=== PATIENT | female | born 1960 | race African-American/Black ===

== ENCOUNTER 2017-05-11 18:09 | Inpatient (IN) | payer MEDICAID, OTHER ==
[~2017-05-11] VITALS: Ht 157.5 cm; Wt 126.6 kg
[~2017-05-11 18:09] MED LIST: ADVAIR; ALBUTEROL INHALER; AMLO10TA4 PO; ASPI-1079 PO; ATOR10TA PO; FLUT1DIS3 IH; FURO-152 PO; KDUR20 PO; LASIX; LEVO500T2 PO; MONT10TA21 PO; OMEP20CA4 PO; P20 PO; PROAIR; THEO200T17 PO; TRAM50TA3 PO; ZPACK
[2017-05-11] MEDS ORDERED: IPRATROPIUM BROMIDE (0.02%) 0.5MG/2.5ML NEB HHN STA (18:28)
[2017-05-11] MEDS ORDERED: ALBUTEROL (0.083%) 2.5MG/3ML NEB HHN STA (18:28)
[2017-05-11] MEDS ORDERED: METHYLPREDNISOLONE SOD SUCC 125 MG/2 ML VIAL IV STA (18:28)
[2017-05-11] MEDS ORDERED: CLOPIDOGREL 75MG TABLET PO ONE (18:30)
[2017-05-11] MEDS ORDERED: MAGNESIUM 2 G PREMIX 50 ML IV ONE (18:30)
[2017-05-11] MEDS ORDERED: NITROGLYCERIN OINT 1GM/INCH UDPKT TD ONE (18:30)
[2017-05-11] MEDS ORDERED: AZITHROMYCIN 500 MG in DEXT 5% WATER 250 ML IV ONE (18:30)
[2017-05-11] MEDS ORDERED: CEFTRIAXONE 1 G PREMIX 50 ML IV ONE (18:30)
[2017-05-11] MEDS ORDERED: AZITHROMYCIN 500 MG in SODIUM CHLORIDE 0.9% 250 ML IV ONE (18:53)
[2017-05-11 19:18] LABS: BASOPHILS % 0.8 % (0.0-2.0); HEMOGLOBIN. 12.1 g/dL (12.0-16.0); LYMPHOCYTES % 30.9 % (20.0-50.0); MEAN CORPUSCULAR HEMOGLOBIN 27.5 pg (28.0-32.0); MEAN CORPUSCULAR VOLUME 83.8 fL (81.0-99.0); MEAN PLATELET VOLUME 7.8 fl (7.4-10.4); MONOCYTES % 7.2 % (2.0-8.0); NEUTROPHILS % 60.1 % (40.0-76.0); PLATELET 334 x1000/uL (130-400); RED BLOOD CELL COUNT 4.41 mill/uL (4.2-5.4); RED CELL DISTRIBUTION WIDTH 16.1 % (11.6-14.6)
[2017-05-11 19:22] LABS: INR 1.1; PROTHROMBIN TIME 11.1 sec (9.4-11.6)
[2017-05-11 19:33] LABS: CHLORIDE 102 mEq/L (98-107); ETHANOL BLOOD < 10 mg/dL
[2017-05-11 20:17] LABS: BG BASE EXCESS 0.2 mmol/L (-2.0-2.0); BG CARBOXYHEMOGLOBIN 0.3 % (0.5-1.5); BG DEOXYHEMOGLOBIN 3.2 % (0.0-5.0); BG FRACTION INSPIRED OXYGEN 28; BG HCO3 ACT 24.5 mmol/L (22.0-26.0); BG METHEMOGLOBIN 0.3 % (0.0-1.5); BG OXYGEN SATURATION 96.8 % (92.0-98.5); BG OXYHEMOGLOBIN 96.2 % (94.0-97.0); BG PCO2 38.4 mmHg (35.0-45.0); BG PH 7.422 (7.350-7.450); BG PO2 89.4 mmHg (75.0-100.0); BG SAMPLE SITE RIGHT RADIAL; BG TOTAL HEMOGLOBIN 12.3 g/dL (12.0-18.0); BG VENT MODE NASAL CANNULA
[2017-05-12] VITALS (7 sets, daily range): BP systolic 103–149; BP diastolic 61–91
[2017-05-12] MEDS ORDERED: ALBU05 NEB (01:01)
[2017-05-12] MEDS ORDERED: FLUT16SP15 BOTHNSTRLS (01:01)
[2017-05-12] MEDS ORDERED: LOVA20TA2 PO (01:01)
[2017-05-12] MEDS ORDERED: TIOT18CA3 INH (01:01)
[2017-05-12] MEDS ORDERED: IBUP-2030 PO (01:01)
[2017-05-12] MEDS ORDERED: PROT40 PO (01:01)
[2017-05-12] MEDS ORDERED: RANI300T4 PO (01:01)
[2017-05-12] MEDS ORDERED: FURO-151 PO (01:01)
[2017-05-12] MEDS ORDERED: ATROV IH (01:02)
[2017-05-12] MEDS: AZITHROMYCIN 500 MG in SODIUM CHLORIDE 0.9% 250 ML IV SCH (04:27)
[2017-05-12] MEDS: IPRATROPIUM/ALBUTEROL 0.5-3(2.5)MG/3ML NEB HHN SCH ×5 (04:40→21:23)
[2017-05-12] MEDS ORDERED: IPRATROPIUM/ALBUTEROL 0.5-3(2.5)MG/3ML NEB HHN SCH (06:00)
[2017-05-12] MEDS: METHYLPREDNISOLONE SOD SUCC 40 MG/ML VIAL IV SCH ×2 (06:32→14:34)
[2017-05-12] MEDS: PANTOPRAZOLE 40MG DR TABLET PO SCH (06:32)
[2017-05-12 06:40] LABS: HEMOGLOBIN. 11.6 g/dL (12.0-16.0); MEAN CORPUSCULAR HEMOGLOBIN 27.8 pg (28.0-32.0); MEAN PLATELET VOLUME 8.2 fl (7.4-10.4); PLATELET 320 x1000/uL (130-400); RED BLOOD CELL COUNT 4.16 mill/uL (4.2-5.4)
[2017-05-12 07:25] LABS: CHLORIDE 104 mEq/L (98-107)
[2017-05-12] MEDS: BUDESONIDE 0.5MG/2ML NEB HHN SCH (08:28)
[2017-05-12] MEDS: FLUTICASONE PROPIONATE 50MCG/SPRAY BOTTLE BOTHNSTRLS SCH (08:53)
[2017-05-12] MEDS: POTASSIUM CHLORIDE 20MEQ TABLET SR PO SCH (08:54)
[2017-05-12] MEDS: FUROSEMIDE 40MG TABLET PO SCH (08:54)
[2017-05-12] MEDS: AMLODIPINE 10MG TABLET PO SCH (08:54)
[2017-05-12] MEDS ORDERED: MEDICATION NOT ON FORMULARY EA (Lovastatin 1 TAB) PO SCH (09:00)
[2017-05-12] MEDS ORDERED: MEDICATION NOT ON FORMULARY EA (Fluticasone/Salmeterol (Advair 250-50 Diskus) 1 PUFF) IH SCH (09:00)
[2017-05-12] MEDS ORDERED: MEDICATION NOT ON FORMULARY EA (Tiotropium Bromide (Spiriva) 1 CAP) INH SCH (09:00)
[2017-05-12] MEDS ORDERED: INFLUENZA VIRUS VACCINE(AFLURIA) 0.5ML SYR IM ONE (12:00)
[2017-05-12] MEDS ORDERED: IOHEXOL-300 100 ML BOTTLE ONE (16:24)
[2017-05-12] MEDS ORDERED: MEDICATION NOT ON FORMULARY EA (Ranitidine Hcl 1 TAB) PO SCH (17:00)
[2017-05-12] MEDS: FAMOTIDINE 20MG TABLET PO SCH (17:07)
[2017-05-12] MEDS ORDERED: DEXTROSE 50% WATER 50ML SYRINGE IV PRN (17:45)
[2017-05-12] MEDS: BLOOD SUGAR DIAGNOSTIC STRIP TEST SCH ×2 (17:50→20:40)
[2017-05-12] MEDS: DEXAMETHASONE 4MG/ML 1ML VIAL IV SCH (19:29)
[2017-05-12] MEDS: INSULIN LISPRO 100 UNITS/ML SUBCUT SCH ×2 (19:36→20:59)
[2017-05-12] MEDS: CEFTRIAXONE 1 G PREMIX 50 ML IV SCH (19:44)
[2017-05-12 19:57] LABS: PLATELET ESTIMATE NORMAL
[2017-05-12] MEDS ORDERED: VANCOMYCIN 1500MG in DEXTROSE 5% WATER 250ML IV SCH (20:00)
[2017-05-12] MEDS: MONTELUKAST SODIUM 10MG TABLET PO SCH (20:27)
[2017-05-12] MEDS: ATORVASTATIN CALCIUM 10MG TABLET PO SCH (20:27)
[2017-05-12] MEDS: METRONIDAZOLE 500 MG PREMIX 100 ML IV SCH ×2 (22:00→22:59)
[2017-05-13] VITALS: BP 133/81
[2017-05-13] MEDS: DEXAMETHASONE 4MG/ML 1ML VIAL IV SCH ×4 (00:14→17:42)
[2017-05-13] MEDS: IPRATROPIUM/ALBUTEROL 0.5-3(2.5)MG/3ML NEB HHN SCH ×6 (00:38→20:03)
[2017-05-13] MEDS: BUDESONIDE 0.5MG/2ML NEB HHN SCH ×3 (03:56→20:03)
[2017-05-13 04:00] VITALS: BP 129/76
[2017-05-13] MEDS: AZITHROMYCIN 500 MG in SODIUM CHLORIDE 0.9% 250 ML IV SCH (04:20)
[2017-05-13] MEDS: METRONIDAZOLE 500 MG PREMIX 100 ML IV SCH ×3 (06:12→22:58)
[2017-05-13] MEDS: BLOOD SUGAR DIAGNOSTIC STRIP TEST SCH ×4 (06:20→21:14)
[2017-05-13] MEDS: PANTOPRAZOLE 40MG DR TABLET PO SCH (06:21)
[2017-05-13 06:59] LABS: HEMATOCRIT. 35.7 % (36.0-48.0); HEMOGLOBIN. 11.4 g/dL (12.0-16.0); MEAN CORPUSCULAR HEMOGLOBIN 26.9 pg (28.0-32.0); MEAN CORPUSCULAR VOLUME 84.2 fL (81.0-99.0); MEAN PLATELET VOLUME 7.9 fl (7.4-10.4); PLATELET 319 x1000/uL (130-400); RED BLOOD CELL COUNT 4.24 mill/uL (4.2-5.4); RED CELL DISTRIBUTION WIDTH 16.1 % (11.6-14.6)
[2017-05-13 07:22] LABS: CHLORIDE 104 mEq/L (98-107)
[2017-05-13] MEDS: INSULIN LISPRO 100 UNITS/ML SUBCUT SCH ×4 (07:50→21:25)
[2017-05-13 08:00] VITALS: BP 131/82
[2017-05-13] MEDS ORDERED: LIDOCAINE HCL/PF 1% 10 MG/ML 5ML VIAL ONE (08:04)
[2017-05-13] MEDS: FUROSEMIDE 40MG TABLET PO SCH (08:36)
[2017-05-13] MEDS: POTASSIUM CHLORIDE 20MEQ TABLET SR PO SCH (08:36)
[2017-05-13] MEDS: FLUTICASONE PROPIONATE 50MCG/SPRAY BOTTLE BOTHNSTRLS SCH (08:36)
[2017-05-13] MEDS: VANCOMYCIN 1 G PREMIX 200 ML IV SCH ×2 (08:36→21:28)
[2017-05-13] MEDS: AMLODIPINE 10MG TABLET PO SCH (08:36)
[2017-05-13] MEDS: ENOXAPARIN 40MG/0.4ML SYR SUBCUT SCH ×2 (11:51→21:14)
[2017-05-13 12:00] VITALS: BP 106/74
[2017-05-13 13:42] LABS: PLATELET ESTIMATE NORMAL
[2017-05-13 16:00] VITALS: BP 123/65
[2017-05-13] MEDS: FAMOTIDINE 20MG TABLET PO SCH (17:42)
[2017-05-13 20:00] VITALS: BP 119/75
[2017-05-13] MEDS: MONTELUKAST SODIUM 10MG TABLET PO SCH (21:08)
[2017-05-13] MEDS: ATORVASTATIN CALCIUM 10MG TABLET PO SCH (21:08)
[2017-05-13] MEDS: CEFTRIAXONE 1 G PREMIX 50 ML IV SCH (21:08)
[2017-05-13] MEDS ORDERED: DIPHENHYDRAMINE 25MG CAPSULE PO PRN (23:45)
[2017-05-14] VITALS: BP 127/76
[2017-05-14] MEDS: DEXAMETHASONE 4MG/ML 1ML VIAL IV SCH ×5 (00:15→23:25)
[2017-05-14] MEDS: IPRATROPIUM/ALBUTEROL 0.5-3(2.5)MG/3ML NEB HHN SCH ×6 (00:42→20:28)
[2017-05-14 04:00] VITALS: BP 110/68
[2017-05-14] MEDS: AZITHROMYCIN 500 MG in SODIUM CHLORIDE 0.9% 250 ML IV SCH (04:22)
[2017-05-14] MEDS: METRONIDAZOLE 500 MG PREMIX 100 ML IV SCH ×3 (05:54→23:02)
[2017-05-14] MEDS: ACETAMINOPHEN 325MG TABLET PO PRN ×2 (06:35→19:41)
[2017-05-14] MEDS: BLOOD SUGAR DIAGNOSTIC STRIP TEST SCH ×4 (07:21→20:53)
[2017-05-14] MEDS: INSULIN LISPRO 100 UNITS/ML SUBCUT SCH ×4 (07:22→21:40)
[2017-05-14 08:00] VITALS: BP 130/78
[2017-05-14] MEDS: FLUTICASONE PROPIONATE 50MCG/SPRAY BOTTLE BOTHNSTRLS SCH (09:29)
[2017-05-14] MEDS: FUROSEMIDE 40MG TABLET PO SCH (09:30)
[2017-05-14] MEDS: PANTOPRAZOLE 40MG DR TABLET PO SCH (09:30)
[2017-05-14] MEDS: POTASSIUM CHLORIDE 20MEQ TABLET SR PO SCH (09:30)
[2017-05-14] MEDS: ENOXAPARIN 40MG/0.4ML SYR SUBCUT SCH ×2 (09:31→20:43)
[2017-05-14] MEDS: AMLODIPINE 10MG TABLET PO SCH (09:31)
[2017-05-14] MEDS: VANCOMYCIN 1 G PREMIX 200 ML IV SCH (09:32)
[2017-05-14] MEDS: IBUPROFEN 800MG TABLET PO PRN ×3 (09:44→22:05)
[2017-05-14] MEDS: BUDESONIDE 0.5MG/2ML NEB HHN SCH ×2 (10:32→20:28)
[2017-05-14 11:45] VITALS: BP 134/79
[2017-05-14 15:14] LABS: CHLORIDE 101 mEq/L (98-107)
[2017-05-14 16:00] VITALS: BP 141/64
[2017-05-14] MEDS: FAMOTIDINE 20MG TABLET PO SCH (17:15)
[2017-05-14] MEDS: CEFTRIAXONE 1 G PREMIX 50 ML IV SCH (19:41)
[2017-05-14 20:00] VITALS: BP 144/86
[2017-05-14] MEDS: MONTELUKAST SODIUM 10MG TABLET PO SCH (20:41)
[2017-05-14] MEDS: ATORVASTATIN CALCIUM 10MG TABLET PO SCH (20:41)
[2017-05-14] MEDS: VANCOMYCIN 750 MG PREMIX 150 ML IV SCH (21:36)
[2017-05-15] VITALS: BP 144/82
[2017-05-15] MEDS: IPRATROPIUM/ALBUTEROL 0.5-3(2.5)MG/3ML NEB HHN SCH ×6 (00:32→21:03)
[2017-05-15 04:00] VITALS: BP 152/92
[2017-05-15] MEDS: AZITHROMYCIN 500 MG in SODIUM CHLORIDE 0.9% 250 ML IV SCH (04:02)
[2017-05-15] MEDS: DEXAMETHASONE 4MG/ML 1ML VIAL IV SCH ×3 (06:01→17:16)
[2017-05-15] MEDS: METRONIDAZOLE 500 MG PREMIX 100 ML IV SCH ×3 (06:02→22:29)
[2017-05-15] MEDS: BLOOD SUGAR DIAGNOSTIC STRIP TEST SCH ×4 (06:28→20:24)
[2017-05-15] MEDS: INSULIN LISPRO 100 UNITS/ML SUBCUT SCH ×4 (06:55→20:24)
[2017-05-15 08:00] VITALS: BP 131/82
[2017-05-15] MEDS: BUDESONIDE 0.5MG/2ML NEB HHN SCH (08:40)
[2017-05-15] MEDS: FUROSEMIDE 40MG TABLET PO SCH (08:55)
[2017-05-15] MEDS: POTASSIUM CHLORIDE 20MEQ TABLET SR PO SCH (08:55)
[2017-05-15] MEDS: AMLODIPINE 10MG TABLET PO SCH (08:55)
[2017-05-15] MEDS: ENOXAPARIN 40MG/0.4ML SYR SUBCUT SCH ×2 (08:56→20:06)
[2017-05-15] MEDS: VANCOMYCIN 750 MG PREMIX 150 ML IV SCH ×2 (09:04→20:56)
[2017-05-15] MEDS: PANTOPRAZOLE SODIUM 40 MG/VIAL IV SCH (09:04)
[2017-05-15 12:00] VITALS: BP_SYST 126; BP_SYST 127; BP_DIAS 76; BP_DIAS 80
[2017-05-15 12:51] LABS: BASOPHILS % 0.1 % (0.0-2.0); HEMATOCRIT. 35.6 % (36.0-48.0); HEMOGLOBIN. 11.4 g/dL (12.0-16.0); MEAN CORPUSCULAR HEMOGLOBIN 26.6 pg (28.0-32.0); MEAN CORPUSCULAR VOLUME 83.4 fL (81.0-99.0); MEAN PLATELET VOLUME 7.9 fl (7.4-10.4); NEUTROPHILS % 86.9 % (40.0-76.0); PLATELET 299 x1000/uL (130-400); RED BLOOD CELL COUNT 4.27 mill/uL (4.2-5.4); RED CELL DISTRIBUTION WIDTH 16.5 % (11.6-14.6)
[2017-05-15 16:00] VITALS: BP 126/76
[2017-05-15] MEDS: FAMOTIDINE 20MG TABLET PO SCH (16:43)
[2017-05-15] MEDS ORDERED: SIMETHICONE 40 MG/0.6 ML 30ML ONE (17:20)
[2017-05-15] MEDS ORDERED: FENTANYL CITRATE/PF 50MCG/ML 2ML VIAL ONE (17:20)
[2017-05-15] MEDS ORDERED: MIDAZOLAM HCL 5 MG/5 ML VIAL ONE (17:21)
[2017-05-15 20:00] VITALS: BP 145/93
[2017-05-15] MEDS: CEFTRIAXONE 1 G PREMIX 50 ML IV SCH (20:05)
[2017-05-15] MEDS: MONTELUKAST SODIUM 10MG TABLET PO SCH (20:05)
[2017-05-15] MEDS: ATORVASTATIN CALCIUM 10MG TABLET PO SCH (20:05)
[2017-05-15] MEDS: IBUPROFEN 800MG TABLET PO PRN (20:21)
[2017-05-16] VITALS: BP 133/70
[2017-05-16] MEDS: DEXAMETHASONE 4MG/ML 1ML VIAL IV SCH ×4 (01:09→18:29)
[2017-05-16] MEDS: IPRATROPIUM/ALBUTEROL 0.5-3(2.5)MG/3ML NEB HHN SCH ×6 (01:25→21:07)
[2017-05-16 04:00] VITALS: BP 131/76
[2017-05-16] MEDS: AZITHROMYCIN 500 MG in SODIUM CHLORIDE 0.9% 250 ML IV SCH (04:05)
[2017-05-16] MEDS: METRONIDAZOLE 500 MG PREMIX 100 ML IV SCH ×2 (06:22→14:00)
[2017-05-16] MEDS: BLOOD SUGAR DIAGNOSTIC STRIP TEST SCH ×4 (06:31→21:00)
[2017-05-16] MEDS: INSULIN LISPRO 100 UNITS/ML SUBCUT SCH ×3 (06:52→17:50)
[2017-05-16 08:19] VITALS: BP 154/95
[2017-05-16] MEDS ORDERED: BARIUM SULFATE 176 GM SUSP.RECON ONE (08:39)
[2017-05-16 08:52] LABS: HEMATOCRIT. 37.3 % (36.0-48.0); HEMOGLOBIN. 11.8 g/dL (12.0-16.0); MEAN CORPUSCULAR HEMOGLOBIN 26.5 pg (28.0-32.0); MEAN CORPUSCULAR VOLUME 83.8 fL (81.0-99.0); MEAN PLATELET VOLUME 8.2 fl (7.4-10.4); PLATELET 304 x1000/uL (130-400); RED BLOOD CELL COUNT 4.45 mill/uL (4.2-5.4); RED CELL DISTRIBUTION WIDTH 16.2 % (11.6-14.6)
[2017-05-16] MEDS: FUROSEMIDE 40MG TABLET PO SCH (09:00)
[2017-05-16] MEDS: POTASSIUM CHLORIDE 20MEQ TABLET SR PO SCH (09:00)
[2017-05-16] MEDS: ENOXAPARIN 40MG/0.4ML SYR SUBCUT SCH (09:00)
[2017-05-16] MEDS: PANTOPRAZOLE SODIUM 40 MG/VIAL IV SCH (09:00)
[2017-05-16] MEDS: AMLODIPINE 10MG TABLET PO SCH (09:01)
[2017-05-16 09:14] LABS: CHLORIDE 101 mEq/L (98-107)
[2017-05-16 12:00] VITALS: BP 124/86
[2017-05-16 14:04] LABS: PLATELET ESTIMATE NORMAL
[2017-05-16 16:00] VITALS: BP 127/77
[2017-05-16] MEDS: FAMOTIDINE 20MG TABLET PO SCH (18:27)
[2017-05-16 19:14] VITALS: BP 121/65
[2017-05-16] MEDS ORDERED: VANCOMYCIN 1,000 MG in DEXT 5% WATER 250 ML IV SCH (21:00)
[2017-09-07] MEDS ORDERED: AMLO2.5T45 PO (12:23)
[2017-10-11] MEDS ORDERED: TIOT18CA3 IH (21:42)
[2017-10-11] MEDS ORDERED: FLUT1DIS3 INH (21:42)
[2017-10-11] MEDS ORDERED: RANI300T4 MT (21:42)
[2017-10-11] MEDS ORDERED: ALBU90AE IH (21:43)
[2017-10-11] MEDS ORDERED: AZEL137S7 NS (21:45)
[2017-10-11] MEDS ORDERED: ATROV3 NS (21:45)
== END 2017-05-16 22:17 | disposition home or self-care (01) | DRG 133 ==
LOC: ER 18:32 → 6EST 20:22 → EDBEDREQSVC 20:25 → EDBEDREQ 20:25 → EDBEDREQTM 20:25 → ENRESERV 22:45
PROVIDERS: ADMIT Internal Medicine; ATTEND Internal Medicine
PROC: 5A09357 Assistance with Respiratory Ventilation, Less than 24 Consecutive Hours, Continuous Positive Airway Pressure (ICD-10-PCS; 2017-05-12)
PROC: 5A09457 Assistance with Respiratory Ventilation, 24-96 Consecutive Hours, Continuous Positive Airway Pressure (ICD-10-PCS; 2017-05-13)
PROC: 02HV33Z Insertion of Infusion Device into Superior Vena Cava, Percutaneous Approach (ICD-10-PCS; 2017-05-13)
PROC: B548ZZA Ultrasonography of Superior Vena Cava, Guidance (ICD-10-PCS; 2017-05-13)
PROC: B5181ZA Fluoroscopy of Superior Vena Cava using Low Osmolar Contrast, Guidance (ICD-10-PCS; 2017-05-13)
PROC: 0DB58ZX Excision of Esophagus, Via Natural or Artificial Opening Endoscopic, Diagnostic (ICD-10-PCS; principal; 2017-05-15)
DX: J96.20 Acute and chronic respiratory failure, unspecified whether with hypoxia or hypercapnia (principal); J18.9 Pneumonia, unspecified organism; I11.0 Hypertensive heart disease with heart failure; J39.0 Retropharyngeal and parapharyngeal abscess; I50.9 Heart failure, unspecified; R65.10 Systemic inflammatory response syndrome (SIRS) of non-infectious origin without acute organ dysfunction; J44.0 Chronic obstructive pulmonary disease with (acute) lower respiratory infection; J44.1 Chronic obstructive pulmonary disease with (acute) exacerbation; E11.9 Type 2 diabetes mellitus without complications; K21.9 Gastro-esophageal reflux disease without esophagitis; G47.33 Obstructive sleep apnea (adult) (pediatric); E78.00 Pure hypercholesterolemia, unspecified; E78.5 Hyperlipidemia, unspecified; E66.9 Obesity, unspecified; K44.9 Diaphragmatic hernia without obstruction or gangrene; Z80.1 Family history of malignant neoplasm of trachea, bronchus and lung; Z86.73 Personal history of transient ischemic attack (TIA), and cerebral infarction without residual deficits; Z87.891 Personal history of nicotine dependence; Z88.6 Allergy status to analgesic agent; Z99.81 Dependence on supplemental oxygen; Z88.5 Allergy status to narcotic agent; Z88.8 Allergy status to other drugs, medicaments and biological substances; Z79.899 Other long term (current) drug therapy; Z98.891 History of uterine scar from previous surgery
CPT/HCPCS: 36415; 36569; 36600; 70490; 70491; 71045; 74230; 76937; 77001; 80048; 80202; 82270; 82375; 82805; 82962; 83605; 83880; 84484; 86677; 87804; 88305; 88312; 90686; 92610; 92611; 93005; 94640; 94660; 94664; 96365; 96375; 99285; C1725; C9113; G0482; J0456; J0696; J1100; J1650; J1815; J2250; J2920; J2930; J3010; J3370; J3475; J3490; J7040; J7050; J7060; J7611; J7620; J7626; Q9967

== ENCOUNTER 2017-05-23 14:30 | Emergency (ER) | payer MEDICAID ==
[~2017-05-23] VITALS: Ht 157.5 cm; Wt 81.0 kg
[~2017-05-23 14:30] MED LIST changes: -ADVAIR; +ALBU05 NEB; -ALBUTEROL INHALER; -ASPI-1079 PO; -ATOR10TA PO; +ATROV IH; +FLUT16SP15 BOTHNSTRLS; +FURO-151 PO; -FURO-152 PO; +IBUP-2030 PO; -LASIX; -LEVO500T2 PO; +LOVA20TA2 PO; -OMEP20CA4 PO; -P20 PO; -PROAIR; +PROT40 PO; +RANI300T4 PO; -THEO200T17 PO; +TIOT18CA3 INH; -TRAM50TA3 PO; -ZPACK
[2017-05-23 14:50] VITALS: BP 113/93
== END 2017-05-23 18:50 | disposition left against medical advice (07) ==
LOC: ER 16:49
DX: M25.561 Pain in right knee (principal); M25.562 Pain in left knee; Z53.21 Procedure and treatment not carried out due to patient leaving prior to being seen by health care provider

== ENCOUNTER 2017-08-18 21:35 | Inpatient (IN) | payer MEDICAID ==
[~2017-08-18] VITALS: Ht 157.5 cm; Wt 129.8 kg
[2017-08-18] MEDS ORDERED: ALBUTEROL (0.083%) 2.5MG/3ML NEB HHN STA (22:49)
[2017-08-18] MEDS ORDERED: IPRATROPIUM BROMIDE (0.02%) 0.5MG/2.5ML NEB HHN STA (22:49)
[2017-08-18] MEDS ORDERED: METHYLPREDNISOLONE SOD SUCC 125 MG/2 ML VIAL IV STA (22:49)
[2017-08-19 00:03] LABS: BASOPHILS % 0.6 % (0.0-2.0); EOSINOPHILS % 1.1 % (0.0-5.0); HEMATOCRIT. 38.1 % (36.0-48.0); HEMOGLOBIN. 12.3 g/dL (12.0-16.0); MEAN CORPUSCULAR HEMOGLOBIN 27.3 pg (28.0-32.0); MEAN CORPUSCULAR VOLUME 84.8 fL (81.0-99.0); MEAN PLATELET VOLUME 7.9 fl (7.4-10.4); MONOCYTES % 7.1 % (2.0-8.0); NEUTROPHILS % 62.2 % (40.0-76.0); PLATELET 299 x1000/uL (130-400); RED BLOOD CELL COUNT 4.49 mill/uL (4.2-5.4); RED CELL DISTRIBUTION WIDTH 17.1 % (11.6-14.6)
[2017-08-19 00:06] LABS: CHLORIDE 103 mEq/L (98-107)
[2017-08-19 00:08] LABS: INR 1.1; PROTHROMBIN TIME 11.4 sec (9.4-11.6)
[2017-08-19] MEDS ORDERED: CEFTRIAXONE 1 G PREMIX 50 ML IV ONE (00:45)
[2017-08-19] MEDS ORDERED: AZITHROMYCIN 500 MG in DEXT 5% WATER 250 ML IV ONE (00:45)
[2017-08-19 04:00] VITALS: BP 106/64
[2017-08-19 06:26] VITALS: BP 101/64
[2017-08-19 08:00] VITALS: BP 157/88
[2017-08-19] MEDS ORDERED: NA PHOS,M-B/NA PHOS,DI-BA ENEMA 118ML PR PRN (09:00)
[2017-08-19] MEDS ORDERED: ACETAMINOPHEN 325MG TABLET PO PRN (09:00)
[2017-08-19] MEDS ORDERED: LORAZEPAM 2MG/ML CPJ IV PRN (09:00)
[2017-08-19] MEDS ORDERED: DIPHENHYDRAMINE 50MG/ML VIAL IV PRN (09:00)
[2017-08-19] MEDS ORDERED: ENOXAPARIN 40MG/0.4ML SYR SUBCUT SCH (09:00)
[2017-08-19] MEDS ORDERED: MORPHINE SULFATE 2 MG/ML CPJ (NOT FOR IM USE) IV PRN (09:00)
[2017-08-19] MEDS ORDERED: ONDANSETRON HCL 4MG/2ML VIAL IV PRN (09:00)
[2017-08-19] MEDS ORDERED: GUAIFENESIN 200MG/10ML SUGAR FREE UDC PO PRN (09:00)
[2017-08-19] MEDS ORDERED: IPRATROPIUM/ALBUTEROL 0.5-3(2.5)MG/3ML NEB INH PRN (09:00)
[2017-08-19] MEDS ORDERED: ASPIRIN 81MG EC TABLET PO SCH (09:00)
[2017-08-19] MEDS ORDERED: HYDROCODONE/ACETAMINOPHEN 5/325MG TABLET PO PRN (09:00)
[2017-08-19] MEDS ORDERED: DOCUSATE SODIUM 100MG CAPSULE PO PRN (09:00)
[2017-08-19] MEDS ORDERED: MAGNESIUM/ALUMINUM HYDROXIDE/SIMETHICONE 30ML UDC PO PRN (09:00)
[2017-08-19 10:20] LABS: CHLORIDE 102 mEq/L (98-107)
[2017-08-19 10:27] LABS: HDL CHOLESTEROL 85 mg/dL (40-59)
[2017-08-19 10:29] LABS: LDL CHOLESTEROL 99 mg/dL (5-100)
[2017-08-19 10:31] LABS: T4 FREE 1.35 ng/dL (0.76-1.46)
[2017-08-19] MEDS: METHYLPREDNISOLONE SOD SUCC 125 MG/2 ML VIAL IV SCH ×3 (11:39→20:58)
[2017-08-19] MEDS: LEVOFLOXACIN 500MG PREMIX 100 ML IV SCH (11:40)
[2017-08-19] MEDS: ENOXAPARIN 40MG/0.4ML SYR SUBCUT SCH ×2 (11:40→20:58)
[2017-08-19 12:00] VITALS: BP 132/79
[2017-08-19] MEDS ORDERED: IBUPROFEN 600MG TABLET PO PRN (14:00)
[2017-08-19 16:00] VITALS: BP 149/81
[2017-08-19 18:12] LABS: CREATINE KINASE 252 IU/L (26-192)
[2017-08-19 18:13] LABS: CREATINE KINASE MB FRACTION 1.6 ng/mL (0.5-3.6)
[2017-08-19 19:51] VITALS: BP 161/78
[2017-08-19] MEDS: CLONIDINE 0.1MG TABLET PO PRN (20:58)
[2017-08-20] VITALS (7 sets, daily range): BP systolic 137–149; BP diastolic 66–88
[2017-08-20 00:23] LABS: CREATINE KINASE 225 IU/L (26-192)
[2017-08-20 00:28] LABS: CREATINE KINASE MB FRACTION 1.7 ng/mL (0.5-3.6)
[2017-08-20] MEDS: METHYLPREDNISOLONE SOD SUCC 125 MG/2 ML VIAL IV SCH ×4 (03:36→21:15)
[2017-08-20 07:13] LABS: BASOPHILS % 0.4 % (0.0-2.0); HEMATOCRIT. 33.9 % (36.0-48.0); LYMPHOCYTES % 11.4 % (20.0-50.0); MEAN CORPUSCULAR HEMOGLOBIN 27.2 pg (28.0-32.0); MEAN CORPUSCULAR VOLUME 84.1 fL (81.0-99.0); MEAN PLATELET VOLUME 8.3 fl (7.4-10.4); NEUTROPHILS % 86.2 % (40.0-76.0); PLATELET 289 x1000/uL (130-400); RED BLOOD CELL COUNT 4.03 mill/uL (4.2-5.4); RED CELL DISTRIBUTION WIDTH 16.5 % (11.6-14.6)
[2017-08-20 08:12] LABS: CHLORIDE 105 mEq/L (98-107)
[2017-08-20 08:42] LABS: CREATINE KINASE 180 IU/L (26-192); HDL CHOLESTEROL 71 mg/dL (40-59)
[2017-08-20 08:46] LABS: CREATINE KINASE MB FRACTION 1.8 ng/mL (0.5-3.6)
[2017-08-20 08:47] LABS: LDL CHOLESTEROL 88 mg/dL (5-100)
[2017-08-20] MEDS: ENOXAPARIN 40MG/0.4ML SYR SUBCUT SCH ×2 (09:18→21:15)
[2017-08-20] MEDS: LEVOFLOXACIN 500MG PREMIX 100 ML IV SCH (09:20)
[2017-08-20 11:26] LABS: BG BASE EXCESS 2.3 mmol/L (-2.0-2.0); BG BILEVEL POS AIRWAY PRESSURE 15/5; BG CARBOXYHEMOGLOBIN 0.3 % (0.5-1.5); BG DEOXYHEMOGLOBIN 1.7 % (0.0-5.0); BG FRACTION INSPIRED OXYGEN 40; BG METHEMOGLOBIN 0.3 % (0.0-1.5); BG OXYGEN SATURATION 98.3 % (92.0-98.5); BG OXYHEMOGLOBIN 97.7 % (94.0-97.0); BG PCO2 42.3 mmHg (35.0-45.0); BG PH 7.423 (7.350-7.450); BG PO2 109.5 mmHg (75.0-100.0); BG SAMPLE SITE RIGHT RADIAL; BG TOTAL HEMOGLOBIN 12.1 g/dL (12.0-18.0); BG VENT MODE MASK - BIPAP; BG VENT RATE 14 set
[2017-08-20] MEDS ORDERED: LIDOCAINE HCL/PF 1% 2ML VIAL ONE (15:26)
[2017-08-21] MEDS: METHYLPREDNISOLONE SOD SUCC 125 MG/2 ML VIAL IV SCH ×2 (02:56→09:25)
[2017-08-21 04:01] VITALS: BP 154/79
[2017-08-21 06:47] LABS: BASOPHILS % 0.3 % (0.0-2.0); HEMATOCRIT. 36.1 % (36.0-48.0); HEMOGLOBIN. 11.8 g/dL (12.0-16.0); LYMPHOCYTES % 8.6 % (20.0-50.0); MEAN CORPUSCULAR HEMOGLOBIN 27.6 pg (28.0-32.0); MEAN CORPUSCULAR VOLUME 84.2 fL (81.0-99.0); MEAN PLATELET VOLUME 8.6 fl (7.4-10.4); MONOCYTES % 1.4 % (2.0-8.0); NEUTROPHILS % 89.7 % (40.0-76.0); PLATELET 311 x1000/uL (130-400); RED BLOOD CELL COUNT 4.28 mill/uL (4.2-5.4); RED CELL DISTRIBUTION WIDTH 16.8 % (11.6-14.6)
[2017-08-21 06:58] LABS: CHLORIDE 104 mEq/L (98-107)
[2017-08-21 08:00] VITALS: BP 172/95
[2017-08-21] MEDS: ENOXAPARIN 40MG/0.4ML SYR SUBCUT SCH (09:25)
[2017-08-21] MEDS: CLONIDINE 0.1MG TABLET PO PRN (09:25)
[2017-08-21] MEDS ORDERED: LEVOFLOXACIN 500MG TABLET PO SCH (11:00)
[2017-08-21 12:00] VITALS: BP 145/94
[2017-08-21 12:17] VITALS: BP 145/94
[2017-08-21 16:00] VITALS: BP 113/82
[2017-08-21] MEDS ORDERED: METHYLPREDNISOLONE SOD SUCC 40 MG/ML VIAL IV SCH (17:00)
== END 2017-08-21 17:00 | disposition home or self-care (01) | DRG 133 ==
LOC: ER 22:03 → 6WST 08-19 00:52 → EDBEDREQ 08-19 00:58 → ENRESERV 08-19 03:13
PROVIDERS: ADMIT Internal Medicine; ATTEND Internal Medicine
PROC: 5A09357 Assistance with Respiratory Ventilation, Less than 24 Consecutive Hours, Continuous Positive Airway Pressure (ICD-10-PCS; principal; 2017-08-19)
PROC: 5A09357 Assistance with Respiratory Ventilation, Less than 24 Consecutive Hours, Continuous Positive Airway Pressure (ICD-10-PCS; 2017-08-20)
DX: J96.20 Acute and chronic respiratory failure, unspecified whether with hypoxia or hypercapnia (principal); J18.9 Pneumonia, unspecified organism; I11.0 Hypertensive heart disease with heart failure; J44.0 Chronic obstructive pulmonary disease with (acute) lower respiratory infection; Z99.81 Dependence on supplemental oxygen; I50.9 Heart failure, unspecified; J44.1 Chronic obstructive pulmonary disease with (acute) exacerbation; R13.10 Dysphagia, unspecified; E66.01 Morbid (severe) obesity due to excess calories; E78.5 Hyperlipidemia, unspecified; J20.9 Acute bronchitis, unspecified; G47.33 Obstructive sleep apnea (adult) (pediatric); I25.10 Atherosclerotic heart disease of native coronary artery without angina pectoris; Z79.899 Other long term (current) drug therapy; Z68.43 Body mass index [BMI] 50.0-59.9, adult; Z88.5 Allergy status to narcotic agent; Z91.048 Other nonmedicinal substance allergy status; Z98.891 History of uterine scar from previous surgery
CPT/HCPCS: 36415; 36600; 71045; 80048; 80053; 80061; 82375; 82550; 82553; 82805; 83036; 83880; 84439; 84443; 84484; 85025; 85379; 85610; 87040; 92610; 93005; 93306; 93970; 97161; J0456; J0696; J1650; J1956; J2930; J3490; J7050; J7060; J7611; J7620

== ENCOUNTER 2017-09-08 08:02 | Day surgery (SDC) | payer MEDICAID ==
[~2017-09-08] VITALS: Ht 157.5 cm; Wt 122.0 kg
[~2017-09-08 08:02] MED LIST changes: -AMLO10TA4 PO; +AMLO2.5T45 PO
[2017-09-08] MEDS ORDERED: SIMETHICONE 40 MG/0.6 ML 30ML ONE (09:49)
[2017-09-08] MEDS ORDERED: ONDANSETRON HCL 4MG/2ML VIAL IV PRN (10:45)
[2017-09-08] MEDS ORDERED: PROPOFOL 200MG/20ML VIAL IV ONE (11:25)
[2017-09-08] MEDS ORDERED: LIDOCAINE HCL/PF 1% 10 MG/ML 5ML VIAL ONE (11:26)
== END 2017-09-08 14:00 | disposition home or self-care (01) ==
LOC: OR 08:02
PROVIDERS: ATTEND Internal Medicine Gastroenterology
DX: K29.50 Unspecified chronic gastritis without bleeding (principal); K44.9 Diaphragmatic hernia without obstruction or gangrene; G47.33 Obstructive sleep apnea (adult) (pediatric); I11.0 Hypertensive heart disease with heart failure; E78.5 Hyperlipidemia, unspecified; J44.9 Chronic obstructive pulmonary disease, unspecified; E66.01 Morbid (severe) obesity due to excess calories; I25.10 Atherosclerotic heart disease of native coronary artery without angina pectoris; K21.9 Gastro-esophageal reflux disease without esophagitis; Z68.43 Body mass index [BMI] 50.0-59.9, adult; Z88.5 Allergy status to narcotic agent; Z88.8 Allergy status to other drugs, medicaments and biological substances; Z83.3 Family history of diabetes mellitus; Z82.49 Family history of ischemic heart disease and other diseases of the circulatory system; Z79.1 Long term (current) use of non-steroidal anti-inflammatories (NSAID); Z79.899 Other long term (current) drug therapy
CPT/HCPCS: 43239; 88305; 88312; 88313; J3490; J7120; J2704

== ENCOUNTER 2017-12-06 13:04 | Inpatient (IN) | payer MEDICAID ==
[~2017-12-06] VITALS: Ht 157.5 cm; Wt 119.3 kg
[~2017-12-06 13:04] MED LIST changes: +ALBU90AE IH; +ATROV3 NS; +AZEL137S7 NS; +RANI300T4 MT
[2017-12-06] MEDS ORDERED: METHYLPREDNISOLONE SOD SUCC 125 MG/2 ML VIAL IV STA (13:37)
[2017-12-06] MEDS ORDERED: IPRATROPIUM/ALBUTEROL 0.5-3(2.5)MG/3ML NEB HHN ONE (13:45)
[2017-12-06] MEDS ORDERED: LEVOFLOXACIN 750MG PREMIX 150 ML IV ONE (13:45)
[2017-12-06 14:16] LABS: BG BASE EXCESS 2.3 mmol/L (-2.0-2.0); BG CARBOXYHEMOGLOBIN 0.5 % (0.5-1.5); BG DEOXYHEMOGLOBIN 1.8 % (0.0-5.0); BG FRACTION INSPIRED OXYGEN 28; BG HCO3 ACT 27.2 mmol/L (22.0-26.0); BG METHEMOGLOBIN 0.2 % (0.0-1.5); BG OXYGEN SATURATION 98.2 % (92.0-98.5); BG OXYHEMOGLOBIN 97.5 % (94.0-97.0); BG PCO2 43.2 mmHg (35.0-45.0); BG PH 7.417 (7.350-7.450); BG PO2 121.3 mmHg (75.0-100.0); BG SAMPLE SITE RIGHT RADIAL; BG TOTAL HEMOGLOBIN 12.2 g/dL (12.0-18.0); BG VENT MODE NASAL CANNULA
[2017-12-06 14:19] LABS: BASOPHILS % 0.3 % (0.0-2.0); EOSINOPHILS % 1.3 % (0.0-5.0); HEMATOCRIT. 35.7 % (36.0-48.0); HEMOGLOBIN. 11.5 g/dL (12.0-16.0); LYMPHOCYTES % 25.4 % (20.0-50.0); MEAN CORPUSCULAR HEMOGLOBIN 26.7 pg (28.0-32.0); MEAN CORPUSCULAR VOLUME 82.8 fL (81.0-99.0); MEAN PLATELET VOLUME 8.3 fl (7.4-10.4); MONOCYTES % 8.3 % (2.0-8.0); NEUTROPHILS % 64.7 % (40.0-76.0); PLATELET 280 x1000/uL (130-400); RED BLOOD CELL COUNT 4.31 mill/uL (4.2-5.4); RED CELL DISTRIBUTION WIDTH 16.5 % (11.6-14.6)
[2017-12-06 14:25] LABS: CHLORIDE 102 mEq/L (98-107)
[2017-12-06 14:31] LABS: ETHANOL BLOOD < 10 mg/dL
[2017-12-06 22:00] VITALS: BP 144/82
[2017-12-06] MEDS ORDERED: ONDANSETRON HCL 4MG/2ML INJ IV PRN (22:30)
[2017-12-07] VITALS: BP 145/95
[2017-12-07] MEDS: IPRATROPIUM/ALBUTEROL 0.5-3(2.5)MG/3ML NEB HHN SCH ×6 (00:26→22:08)
[2017-12-07 04:00] VITALS: BP 129/82
[2017-12-07] MEDS: METHYLPREDNISOLONE SOD SUCC 40 MG/ML VIAL IV SCH ×3 (04:49→18:37)
[2017-12-07 06:45] LABS: BASOPHILS % 0.3 % (0.0-2.0); HEMATOCRIT. 37.3 % (36.0-48.0); LYMPHOCYTES % 18.5 % (20.0-50.0); MEAN CORPUSCULAR HEMOGLOBIN 26.8 pg (28.0-32.0); MEAN PLATELET VOLUME 8.5 fl (7.4-10.4); NEUTROPHILS % 80.2 % (40.0-76.0); PLATELET 277 x1000/uL (130-400); RED BLOOD CELL COUNT 4.49 mill/uL (4.2-5.4); RED CELL DISTRIBUTION WIDTH 16.8 % (11.6-14.6)
[2017-12-07 07:16] LABS: CHLORIDE 105 mEq/L (98-107)
[2017-12-07 08:00] VITALS: BP 123/84
[2017-12-07] MEDS: OMEPRAZOLE 20MG CAPSULE EXTENDED RELEASE PO SCH (08:09)
[2017-12-07] MEDS: ENOXAPARIN 30MG/0.3ML SYR SUBCUT SCH ×2 (08:09→20:53)
[2017-12-07] MEDS: ACETAMINOPHEN 325MG TABLET PO PRN (11:09)
[2017-12-07 12:00] VITALS: BP 135/74
[2017-12-07 16:00] VITALS: BP 130/71
[2017-12-07] MEDS: FUROSEMIDE 40MG TABLET PO SCH (18:58)
[2017-12-07] MEDS: AMLODIPINE 5MG TABLET PO SCH (19:00)
[2017-12-07 20:00] VITALS: BP 128/78
[2017-12-07] MEDS: LEVOFLOXACIN 500MG TABLET PO SCH (20:52)
[2017-12-07] MEDS ORDERED: MONTELUKAST SODIUM 10MG TABLET PO SCH (21:00)
[2017-12-08] VITALS: BP 130/82
[2017-12-08] MEDS: IPRATROPIUM/ALBUTEROL 0.5-3(2.5)MG/3ML NEB HHN SCH ×5 (01:30→15:23)
[2017-12-08] MEDS: METHYLPREDNISOLONE SOD SUCC 40 MG/ML VIAL IV SCH ×2 (02:52→10:20)
[2017-12-08 04:00] VITALS: BP 129/83
[2017-12-08 08:00] VITALS: BP 126/82
[2017-12-08] MEDS: OMEPRAZOLE 20MG CAPSULE EXTENDED RELEASE PO SCH (08:03)
[2017-12-08] MEDS: ACETAMINOPHEN 325MG TABLET PO PRN (08:26)
[2017-12-08] MEDS ORDERED: POTASSIUM CHLORIDE 20MEQ TABLET SR PO SCH (09:00)
[2017-12-08] MEDS: ENOXAPARIN 30MG/0.3ML SYR SUBCUT SCH (09:09)
[2017-12-08] MEDS: FUROSEMIDE 40MG TABLET PO SCH (09:09)
[2017-12-08] MEDS: AMLODIPINE 5MG TABLET PO SCH (09:10)
[2017-12-08] MEDS: LEVOFLOXACIN 500MG TABLET PO SCH (10:20)
[2017-12-08 12:00] VITALS: BP 133/78
[2017-12-08 16:00] VITALS: BP 128/82
[2017-12-08 17:12] VITALS: BP 128/82
== END 2017-12-08 17:49 | disposition home or self-care (01) | DRG 140 ==
LOC: ER 13:04 → 7WST 17:14 → EDBEDREQ 17:16 → ENRESERV 20:15
PROVIDERS: ADMIT Internal Medicine; ATTEND Internal Medicine
PROC: 5A09357 Assistance with Respiratory Ventilation, Less than 24 Consecutive Hours, Continuous Positive Airway Pressure (ICD-10-PCS; principal; 2017-12-07)
PROC: 5A09357 Assistance with Respiratory Ventilation, Less than 24 Consecutive Hours, Continuous Positive Airway Pressure (ICD-10-PCS; 2017-12-08)
DX: J44.1 Chronic obstructive pulmonary disease with (acute) exacerbation (principal); J96.21 Acute and chronic respiratory failure with hypoxia; I11.0 Hypertensive heart disease with heart failure; I50.9 Heart failure, unspecified; E78.5 Hyperlipidemia, unspecified; E87.6 Hypokalemia; I25.10 Atherosclerotic heart disease of native coronary artery without angina pectoris; G47.33 Obstructive sleep apnea (adult) (pediatric); J32.9 Chronic sinusitis, unspecified; Z88.8 Allergy status to other drugs, medicaments and biological substances; Z88.4 Allergy status to anesthetic agent; Z88.5 Allergy status to narcotic agent; Z87.891 Personal history of nicotine dependence; Z79.51 Long term (current) use of inhaled steroids; Z79.899 Other long term (current) drug therapy; Z88.6 Allergy status to analgesic agent
CPT/HCPCS: 36415; 36600; 71045; 80048; 80053; 82375; 82805; 83605; 83880; 84484; 85025; 87040; 92610; 93005; 96365; 96366; 96375; 97162; 99285; G0482; J1650; J1956; J2920; J2930; J7620

== ENCOUNTER 2018-06-25 18:45 | Inpatient (IN) | payer MEDICAID ==
[~2018-06-25] VITALS: Ht 157.5 cm; Wt 127.5 kg
[~2018-06-25 18:45] MED LIST changes: -ALBU05 NEB; -ALBU90AE IH; -ATROV3 NS; -AZEL137S7 NS; -RANI300T4 MT
[2018-06-25] MEDS ORDERED: ALBUTEROL (0.083%) 2.5MG/3ML NEB HHN ONE (20:45)
[2018-06-25 21:14] LABS: BASOPHILS % 0.6 % (0.0-2.0); EOSINOPHILS % 1.2 % (0.0-5.0); HEMATOCRIT. 36.3 % (36.0-48.0); HEMOGLOBIN. 11.8 g/dL (12.0-16.0); LYMPHOCYTES % 39.3 % (20.0-50.0); MEAN CORPUSCULAR HEMOGLOBIN 27.2 pg (28.0-32.0); MEAN CORPUSCULAR VOLUME 83.6 fL (81.0-99.0); MEAN PLATELET VOLUME 8.3 fl (7.4-10.4); MONOCYTES % 8.8 % (2.0-8.0); NEUTROPHILS % 50.1 % (40.0-76.0); PLATELET 251 x1000/uL (130-400); RED BLOOD CELL COUNT 4.34 mill/uL (4.2-5.4); RED CELL DISTRIBUTION WIDTH 16.3 % (11.6-14.6)
[2018-06-25 21:17] LABS: CHLORIDE 105 mEq/L (98-107)
[2018-06-25 21:55] LABS: BG BASE EXCESS 1.8 mmol/L (-2.0-2.0); BG CARBOXYHEMOGLOBIN 0.3 % (0.5-1.5); BG DEOXYHEMOGLOBIN 5.6 % (0.0-5.0); BG FRACTION INSPIRED OXYGEN 28; BG HCO3 ACT 27.8 mmol/L (22.0-26.0); BG METHEMOGLOBIN 0.3 % (0.0-1.5); BG OXYGEN SATURATION 94.4 % (92.0-98.5); BG OXYHEMOGLOBIN 93.8 % (94.0-97.0); BG PCO2 49.7 mmHg (35.0-45.0); BG PH 7.366 (7.350-7.450); BG PO2 77.9 mmHg (75.0-100.0); BG SAMPLE SITE LEFT RADIAL; BG TOTAL HEMOGLOBIN 12.8 g/dL (12.0-18.0); BG VENT MODE NASAL CANNULA
[2018-06-25] MEDS ORDERED: METHYLPREDNISOLONE SOD SUCC 125 MG/2 ML VIAL IV STA (22:36)
[2018-06-25] MEDS ORDERED: ONDANSETRON HCL 4MG/2ML INJ IV PRN (23:45)
[2018-06-25] MEDS ORDERED: ENOXAPARIN 40MG/0.4ML SYR SUBCUT SCH (23:45)
[2018-06-25] MEDS ORDERED: DOCUSATE SODIUM 100MG CAPSULE PO PRN (23:45)
[2018-06-25] MEDS ORDERED: MAGNESIUM/ALUMINUM HYDROXIDE/SIMETHICONE 30ML UDC PO PRN (23:45)
[2018-06-25] MEDS ORDERED: HYDROCODONE/ACETAMINOPHEN 5/325MG TABLET PO PRN (23:45)
[2018-06-25] MEDS ORDERED: CLONIDINE 0.1MG TABLET PO PRN (23:45)
[2018-06-25] MEDS ORDERED: GUAIFENESIN 200MG/10ML SUGAR FREE UDC PO PRN (23:45)
[2018-06-26] VITALS (7 sets, daily range): BP systolic 136–162; BP diastolic 72–90
[2018-06-26 00:10] LABS: CHLORIDE 106 mEq/L (98-107)
[2018-06-26] MEDS: OMEPRAZOLE 20MG CAPSULE EXTENDED RELEASE PO SCH ×2 (00:51→07:40)
[2018-06-26 05:44] LABS: BASOPHILS % 0.9 % (0.0-2.0); EOSINOPHILS % 1.3 % (0.0-5.0); HEMATOCRIT. 37.2 % (36.0-48.0); HEMOGLOBIN. 11.8 g/dL (12.0-16.0); LYMPHOCYTES % 35.1 % (20.0-50.0); MEAN CORPUSCULAR HEMOGLOBIN 26.7 pg (28.0-32.0); MEAN CORPUSCULAR VOLUME 84.7 fL (81.0-99.0); MEAN PLATELET VOLUME 9.8 fl (7.4-10.4); MONOCYTES % 5.9 % (2.0-8.0); NEUTROPHILS % 56.8 % (40.0-76.0); PLATELET 254 x1000/uL (130-400); RED CELL DISTRIBUTION WIDTH 16.6 % (11.6-14.6)
[2018-06-26 06:07] LABS: LDL CHOLESTEROL 116 mg/dL (5-100)
[2018-06-26 06:09] LABS: CREATINE KINASE 147 IU/L (26-192); HDL CHOLESTEROL 70 mg/dL (40-59)
[2018-06-26 06:11] LABS: CREATINE KINASE MB FRACTION < 1.0 ng/mL (0.5-3.6)
[2018-06-26] MEDS ORDERED: METHYLPREDNISOLONE SOD SUCC 125 MG/2 ML VIAL IV SCH (08:00)
[2018-06-26] MEDS: ACETAMINOPHEN 325MG TABLET PO PRN (08:29)
[2018-06-26] MEDS ORDERED: ENOXAPARIN 30MG/0.3ML SYR SUBCUT SCH (09:00)
[2018-06-26] MEDS: IPRATROPIUM/ALBUTEROL 0.5-3(2.5)MG/3ML NEB INH SCH ×3 (11:59→20:52)
[2018-06-26] MEDS ORDERED: ONDANSETRON HCL 4MG/2ML INJ IV PRN (13:30)
[2018-06-26] MEDS ORDERED: DOCUSATE SODIUM 100MG CAPSULE PO PRN (13:30)
[2018-06-26] MEDS ORDERED: HYDROCODONE/ACETAMINOPHEN 5/325MG TABLET PO PRN (13:30)
[2018-06-26] MEDS ORDERED: CLONIDINE 0.1MG TABLET PO PRN (13:30)
[2018-06-26] MEDS ORDERED: IPRATROPIUM/ALBUTEROL 0.5-3(2.5)MG/3ML NEB INH PRN (13:30)
[2018-06-26] MEDS ORDERED: LORAZEPAM 0.5MG TABLET PO PRN (13:30)
[2018-06-26] MEDS ORDERED: ACETAMINOPHEN 325MG TABLET PO PRN (13:30)
[2018-06-26] MEDS ORDERED: LIDOCAINE HCL 1% 20ML VIAL (Pyxis) INJ ONE (13:35)
[2018-06-26] MEDS ORDERED: SODIUM BICARBONATE 4% (2.4MEQ) 5ML VIAL IV ONE (13:35)
[2018-06-26] MEDS ORDERED: POTASSIUM CHLORIDE 20MEQ TABLET SR PO NR (14:00)
[2018-06-26] MEDS ORDERED: TRAMADOL 50MG TABLET PO PRN (14:00)
[2018-06-26] MEDS: FUROSEMIDE 40MG/4ML VIAL IVP SCH ×2 (14:24→17:44)
[2018-06-26] MEDS: IPRATROPIUM/ALBUTEROL 0.5-3(2.5)MG/3ML NEB INH PRN (18:04)
[2018-06-26 18:15] LABS: CREATINE KINASE 157 IU/L (26-192)
[2018-06-26 18:16] LABS: CREATINE KINASE MB FRACTION 1.4 ng/mL (0.5-3.6)
[2018-06-26] MEDS: ATORVASTATIN CALCIUM 20MG TABLET PO SCH (21:02)
[2018-06-26] MEDS: MONTELUKAST SODIUM 10MG TABLET PO SCH (21:02)
[2018-06-26] MEDS: METHYLPREDNISOLONE SOD SUCC 40 MG/ML VIAL IV SCH (21:44)
[2018-06-27] VITALS: BP 110/72
[2018-06-27] MEDS: IPRATROPIUM/ALBUTEROL 0.5-3(2.5)MG/3ML NEB INH SCH ×7 (00:55→21:02)
[2018-06-27] MEDS: ACETYLCYSTEINE 100MG/ML 10% VIAL 4ML INH SCH ×2 (00:55→09:16)
[2018-06-27 04:00] VITALS: BP 97/51
[2018-06-27] MEDS: METHYLPREDNISOLONE SOD SUCC 40 MG/ML VIAL IV SCH ×2 (06:10→13:16)
[2018-06-27 06:48] LABS: BASOPHILS % 0.1 % (0.0-2.0); HEMATOCRIT. 36.6 % (36.0-48.0); HEMOGLOBIN. 11.6 g/dL (12.0-16.0); LYMPHOCYTES % 13.9 % (20.0-50.0); MEAN CORPUSCULAR HEMOGLOBIN 26.8 pg (28.0-32.0); MEAN CORPUSCULAR VOLUME 84.3 fL (81.0-99.0); MONOCYTES % 2.6 % (2.0-8.0); NEUTROPHILS % 83.4 % (40.0-76.0); PLATELET 263 x1000/uL (130-400); RED BLOOD CELL COUNT 4.34 mill/uL (4.2-5.4); RED CELL DISTRIBUTION WIDTH 16.4 % (11.6-14.6)
[2018-06-27] MEDS: FUROSEMIDE 40MG/4ML VIAL IVP SCH ×2 (07:00→18:12)
[2018-06-27 07:48] LABS: CHLORIDE 104 mEq/L (98-107)
[2018-06-27 08:00] VITALS: BP 115/70
[2018-06-27] MEDS: OMEPRAZOLE 20MG CAPSULE EXTENDED RELEASE PO SCH (09:28)
[2018-06-27] MEDS: AMLODIPINE 2.5MG TABLET PO SCH (09:28)
[2018-06-27] MEDS: FLUTICASONE PROPIONATE 50MCG/SPRAY BOTTLE BOTHNSTRLS SCH (09:29)
[2018-06-27] MEDS ORDERED: SERT50TA MT (11:46)
[2018-06-27 12:00] VITALS: BP 124/59
[2018-06-27 16:00] VITALS: BP 134/90
[2018-06-27] MEDS: IPRATROPIUM/ALBUTEROL 0.5-3(2.5)MG/3ML NEB INH PRN (17:14)
[2018-06-27 20:12] VITALS: BP 143/81
[2018-06-27] MEDS: MONTELUKAST SODIUM 10MG TABLET PO SCH (21:32)
[2018-06-27] MEDS: ATORVASTATIN CALCIUM 20MG TABLET PO SCH (21:32)
[2018-06-28 00:30] VITALS: BP 114/65
[2018-06-28] MEDS: ACETYLCYSTEINE 100MG/ML 10% VIAL 4ML INH SCH (00:54)
[2018-06-28] MEDS: IPRATROPIUM/ALBUTEROL 0.5-3(2.5)MG/3ML NEB INH SCH ×2 (00:54→05:04)
[2018-06-28 04:00] VITALS: BP 113/64
[2018-06-28 07:15] LABS: CHLORIDE 102 mEq/L (98-107)
[2018-06-28 07:19] LABS: BASOPHILS % 0.1 % (0.0-2.0); HEMATOCRIT. 36.2 % (36.0-48.0); HEMOGLOBIN. 11.7 g/dL (12.0-16.0); LYMPHOCYTES % 11.9 % (20.0-50.0); MEAN CORPUSCULAR HEMOGLOBIN 26.9 pg (28.0-32.0); MEAN CORPUSCULAR VOLUME 83.5 fL (81.0-99.0); MEAN PLATELET VOLUME 8.9 fl (7.4-10.4); MONOCYTES % 6.2 % (2.0-8.0); NEUTROPHILS % 81.8 % (40.0-76.0); PLATELET 257 x1000/uL (130-400); RED BLOOD CELL COUNT 4.34 mill/uL (4.2-5.4); RED CELL DISTRIBUTION WIDTH 16.4 % (11.6-14.6)
[2018-06-28 08:00] VITALS: BP 125/80
[2018-06-28] MEDS ORDERED: PREDNISONE 20MG TABLET PO SCH (09:00)
[2018-06-28] MEDS: FLUTICASONE PROPIONATE 50MCG/SPRAY BOTTLE BOTHNSTRLS SCH (09:25)
[2018-06-28] MEDS: AMLODIPINE 2.5MG TABLET PO SCH (09:26)
[2018-06-28] MEDS: ACETAMINOPHEN 325MG TABLET PO PRN (09:26)
[2018-06-28] MEDS: FUROSEMIDE 40MG/4ML VIAL IVP SCH (09:26)
[2018-06-28] MEDS: OMEPRAZOLE 20MG CAPSULE EXTENDED RELEASE PO SCH (09:26)
[2018-06-28 12:00] VITALS: BP 120/71
[2018-06-28 14:23] VITALS: BP 125/74
== END 2018-06-28 17:16 | disposition home or self-care (01) | DRG 140 ==
LOC: ER 18:45 → 7WST 22:44 → EDBEDREQTM 22:47 → EDBEDREQ 22:47 → ENRESERV 06-26 05:19 → 7WST 06-26 07:34
PROVIDERS: ADMIT Internal Medicine; ATTEND Internal Medicine
PROC: 02HV33Z Insertion of Infusion Device into Superior Vena Cava, Percutaneous Approach (ICD-10-PCS; principal; 2018-06-26)
PROC: B5181ZA Fluoroscopy of Superior Vena Cava using Low Osmolar Contrast, Guidance (ICD-10-PCS; 2018-06-26)
PROC: B548ZZA Ultrasonography of Superior Vena Cava, Guidance (ICD-10-PCS; 2018-06-26)
PROC: 5A09357 Assistance with Respiratory Ventilation, Less than 24 Consecutive Hours, Continuous Positive Airway Pressure (ICD-10-PCS; 2018-06-26)
PROC: 5A09357 Assistance with Respiratory Ventilation, Less than 24 Consecutive Hours, Continuous Positive Airway Pressure (ICD-10-PCS; 2018-06-28)
DX: J44.1 Chronic obstructive pulmonary disease with (acute) exacerbation (principal); J96.20 Acute and chronic respiratory failure, unspecified whether with hypoxia or hypercapnia; E87.2 Acidosis; E66.01 Morbid (severe) obesity due to excess calories; I50.9 Heart failure, unspecified; I11.0 Hypertensive heart disease with heart failure; J31.0 Chronic rhinitis; K21.9 Gastro-esophageal reflux disease without esophagitis; D64.9 Anemia, unspecified; E78.5 Hyperlipidemia, unspecified; H91.90 Unspecified hearing loss, unspecified ear; K44.9 Diaphragmatic hernia without obstruction or gangrene; R63.4 Abnormal weight loss; G47.33 Obstructive sleep apnea (adult) (pediatric); Z99.81 Dependence on supplemental oxygen; Z82.49 Family history of ischemic heart disease and other diseases of the circulatory system; Z82.5 Family history of asthma and other chronic lower respiratory diseases; Z83.3 Family history of diabetes mellitus; Z68.43 Body mass index [BMI] 50.0-59.9, adult
CPT/HCPCS: 36415; 36569; 36573; 36600; 70360; 71045; 76705; 80048; 80061; 82375; 82550; 82553; 82805; 83735; 83880; 84145; 84443; 84484; 93005; 93306; 93970; 94640; 94660; 96374; 96375; 99285; C1725; C1893; J1650; J1940; J2920; J2930; J3490; J7512; J7608; J7611; J7620

== ENCOUNTER 2018-08-10 16:14 | Emergency (ER) | payer MEDICAID ==
[~2018-08-10] VITALS: Ht 162.6 cm; Wt 123.0 kg
[2018-08-10] MEDS ORDERED: IPRATROPIUM BROMIDE (0.02%) 0.5MG/2.5ML NEB HHN STA (16:46)
[2018-08-10] MEDS ORDERED: ALBUTEROL (0.083%) 2.5MG/3ML NEB HHN STA (16:46)
[2018-08-10] MEDS ORDERED: METHYLPREDNISOLONE SOD SUCC 125 MG/2 ML VIAL IV ONE (17:00)
[2018-08-10] MEDS ORDERED: FUROSEMIDE 40MG/4ML VIAL IV ONE (17:00)
[2018-08-10 17:06] LABS: CHLORIDE 110 mEq/L (98-107)
[2018-08-10 17:08] LABS: BASOPHILS % 0.9 % (0.0-2.0); EOSINOPHILS % 1.2 % (0.0-5.0); HEMATOCRIT. 36.6 % (36.0-48.0); HEMOGLOBIN. 11.8 g/dL (12.0-16.0); LYMPHOCYTES % 34.6 % (20.0-50.0); MEAN CORPUSCULAR HEMOGLOBIN 27.4 pg (28.0-32.0); MEAN CORPUSCULAR VOLUME 84.6 fL (81.0-99.0); MEAN PLATELET VOLUME 8.7 fl (7.4-10.4); MONOCYTES % 8.4 % (2.0-8.0); NEUTROPHILS % 54.9 % (40.0-76.0); PLATELET 233 x1000/uL (130-400); RED BLOOD CELL COUNT 4.33 mill/uL (4.2-5.4); RED CELL DISTRIBUTION WIDTH 16.4 % (11.6-14.6)
[2018-08-10 20:57] VITALS: BP 145/80
== END 2018-08-10 21:10 | disposition home or self-care (01) ==
LOC: ER 16:14
DX: J44.1 Chronic obstructive pulmonary disease with (acute) exacerbation (principal); I11.0 Hypertensive heart disease with heart failure; I50.9 Heart failure, unspecified; E11.9 Type 2 diabetes mellitus without complications; E78.00 Pure hypercholesterolemia, unspecified; Z88.6 Allergy status to analgesic agent; Z88.5 Allergy status to narcotic agent; Z79.82 Long term (current) use of aspirin; Z79.899 Other long term (current) drug therapy
CPT/HCPCS: 36415; 71045; 80053; 83880; 84484; 85025; 93005; 94640; 96374; 96375; 99284; J1940; J2930; J7611; Z7610

== ENCOUNTER 2019-01-02 21:27 | Inpatient (IN) | payer MEDICAID ==
[~2019-01-02] VITALS: Ht 157.5 cm; Wt 127.0 kg
[~2019-01-02 21:27] MED LIST changes: +ALBU90AE INH; +AZEL137S7 BOTHNSTRLS; +COR6 MT; +FLUT15.88 BOTHNSTRLS; +LISI-186 MT
[2019-01-02] MEDS ORDERED: METHYLPREDNISOLONE SOD SUCC 125 MG/2 ML VIAL IV STA (21:47)
[2019-01-02] MEDS ORDERED: LEVOFLOXACIN 750MG PREMIX 150 ML IV ONE (22:00)
[2019-01-02] MEDS ORDERED: MAGNESIUM 2 G PREMIX 50 ML IV ONE (22:00)
[2019-01-02] MEDS ORDERED: FUROSEMIDE 40MG/4ML VIAL IV ONE (22:00)
[2019-01-02] MEDS ORDERED: IPRATROPIUM/ALBUTEROL 0.5-3(2.5)MG/3ML NEB HHN ONE (22:00)
[2019-01-02 23:10] LABS: BG BASE EXCESS 1.2 mmol/L (-2.0-2.0); BG CARBOXYHEMOGLOBIN 0.3 % (0.5-1.5); BG DEOXYHEMOGLOBIN 5.1 % (0.0-5.0); BG FRACTION INSPIRED OXYGEN 24; BG HCO3 ACT 27.2 mmol/L (22.0-26.0); BG METHEMOGLOBIN 0.2 % (0.0-1.5); BG OXYGEN SATURATION 94.9 % (92.0-98.5); BG OXYHEMOGLOBIN 94.4 % (94.0-97.0); BG PCO2 49.3 mmHg (35.0-45.0); BG PO2 77.5 mmHg (75.0-100.0); BG SAMPLE SITE RIGHT RADIAL; BG TOTAL HEMOGLOBIN 11.7 g/dL (12.0-18.0); BG VENT MODE NASAL CANNULA
[2019-01-02 23:31] LABS: BASOPHILS % 0.8 % (0.0-2.0); EOSINOPHILS % 2.1 % (0.0-5.0); HEMATOCRIT. 34.9 % (36.0-48.0); HEMOGLOBIN. 11.5 g/dL (12.0-16.0); LYMPHOCYTES % 37.6 % (20.0-50.0); MEAN CORPUSCULAR HEMOGLOBIN 28.7 pg (28.0-32.0); MEAN CORPUSCULAR VOLUME 86.9 fL (81.0-99.0); MEAN PLATELET VOLUME 8.4 fl (7.4-10.4); MONOCYTES % 8.4 % (2.0-8.0); NEUTROPHILS % 51.1 % (40.0-76.0); PLATELET 228 x1000/uL (130-400); RED BLOOD CELL COUNT 4.01 mill/uL (4.2-5.4); RED CELL DISTRIBUTION WIDTH 15.8 % (11.6-14.6)
[2019-01-02 23:37] LABS: CHLORIDE 111 mEq/L (98-107)
[2019-01-02 23:56] LABS: PARTIAL THROMBOPLASTIN TIME 26.6 sec (23.4-31.0); PROTHROMBIN TIME 10.3 sec (9.6-11.0)
[2019-01-03] VITALS (9 sets, daily range): BP systolic 145–183; BP diastolic 69–99
[2019-01-03] MEDS ORDERED: CARV3.1242 MT (05:55)
[2019-01-03] MEDS ORDERED: IPRATROPIUM/ALBUTEROL 0.5-3(2.5)MG/3ML NEB HHN PRN (07:00)
[2019-01-03] MEDS ORDERED: LISINOPRIL 5MG TABLET PO SCH (09:00)
[2019-01-03] MEDS ORDERED: FUROSEMIDE 40MG TABLET PO SCH (09:00)
[2019-01-03] MEDS ORDERED: CARVEDILOL 3.125 MG TABLET PO SCH (09:00)
[2019-01-03] MEDS: IPRATROPIUM/ALBUTEROL 0.5-3(2.5)MG/3ML NEB HHN SCH ×4 (09:06→19:50)
[2019-01-03] MEDS: METHYLPREDNISOLONE SOD SUCC 40 MG/ML VIAL IV SCH ×3 (09:31→21:13)
[2019-01-03] MEDS: POTASSIUM CHLORIDE 20MEQ TABLET SR PO SCH (09:31)
[2019-01-03] MEDS: PANTOPRAZOLE 40MG DR TABLET PO SCH (09:32)
[2019-01-03] MEDS: AMLODIPINE 5MG TABLET PO SCH ×2 (09:42→21:14)
[2019-01-03] MEDS: GUAIFENESIN 600MG ER TABLET PO SCH ×2 (12:37→21:13)
[2019-01-03] MEDS: LEVOFLOXACIN 500MG TABLET PO SCH (12:38)
[2019-01-03] MEDS: FUROSEMIDE 40MG/4ML VIAL IVP SCH (17:53)
[2019-01-03] MEDS ORDERED: NON FORMULARY PATIENT HOME MED PO SCH (21:00)
[2019-01-03] MEDS: FLUTICASONE PROPIONATE 50MCG/SPRAY BOTTLE BOTHNSTRLS SCH (21:13)
[2019-01-03] MEDS: ATORVASTATIN CALCIUM 10MG TABLET PO SCH (21:13)
[2019-01-04] VITALS (15 sets, daily range): BP systolic 64–167; BP diastolic 40–94
[2019-01-04] MEDS: IPRATROPIUM/ALBUTEROL 0.5-3(2.5)MG/3ML NEB HHN SCH ×6 (00:36→21:31)
[2019-01-04 03:58] LABS: *AMPHETAMINES SCREEN URINE NEGATIVE (NEGATIVE); *BARBITURATES SCREEN URINE NEGATIVE (NEGATIVE); *BENZODIAZEPINES SCREEN URINE NEGATIVE (NEGATIVE); *COCAINE SCREEN URINE NEGATIVE (NEGATIVE)
[2019-01-04 04:00] LABS: CANNABINOID URINE SCREEN NEGATIVE (NEGATIVE); METHADONE URINE SCREEN NEGATIVE (NEGATIVE); OPIATES URINE SCREEN PRESUMTIVE POSITIVE (NEGATIVE); PHENCYCLIDINE URINE SCREEN NEGATIVE (NEGATIVE)
[2019-01-04] MEDS: METHYLPREDNISOLONE SOD SUCC 40 MG/ML VIAL IV SCH ×3 (06:10→21:21)
[2019-01-04 08:19] LABS: CHLORIDE 105 mEq/L (98-107)
[2019-01-04] MEDS: GUAIFENESIN 600MG ER TABLET PO SCH ×2 (08:32→21:21)
[2019-01-04] MEDS: FLUTICASONE PROPIONATE 50MCG/SPRAY BOTTLE BOTHNSTRLS SCH ×2 (08:32→21:21)
[2019-01-04] MEDS: FUROSEMIDE 40MG/4ML VIAL IVP SCH (08:32)
[2019-01-04] MEDS: AMLODIPINE 5MG TABLET PO SCH ×2 (08:32→21:22)
[2019-01-04] MEDS: POTASSIUM CHLORIDE 20MEQ TABLET SR PO SCH (08:38)
[2019-01-04] MEDS: PANTOPRAZOLE 40MG DR TABLET PO SCH (08:38)
[2019-01-04] MEDS ORDERED: LISINOPRIL 40MG TABLET PO SCH (09:00)
[2019-01-04] MEDS: LEVOFLOXACIN 500MG TABLET PO SCH (11:01)
[2019-01-04] MEDS: ENOXAPARIN 40MG/0.4ML SYR SUBCUT SCH ×2 (12:14→23:12)
[2019-01-04] MEDS ORDERED: SODIUM POLYSTYRENE SULFONATE 15 G/60 ML BOT PO SCH (12:30)
[2019-01-04] MEDS ORDERED: CLONIDINE 0.1MG TABLET PO PRN (15:30)
[2019-01-04] MEDS: ATORVASTATIN CALCIUM 10MG TABLET PO SCH (21:21)
[2019-01-04] MEDS: ACETAMINOPHEN 325MG TABLET PO PRN (23:12)
[2019-01-05] VITALS (12 sets, daily range): BP systolic 131–165; BP diastolic 75–104
[2019-01-05] MEDS: IPRATROPIUM/ALBUTEROL 0.5-3(2.5)MG/3ML NEB HHN SCH ×6 (00:37→20:05)
[2019-01-05] MEDS: METHYLPREDNISOLONE SOD SUCC 40 MG/ML VIAL IV SCH ×3 (05:08→21:53)
[2019-01-05 08:27] LABS: CHLORIDE 104 mEq/L (98-107)
[2019-01-05] MEDS: PANTOPRAZOLE 40MG DR TABLET PO SCH (08:46)
[2019-01-05] MEDS: AMLODIPINE 5MG TABLET PO SCH ×2 (08:46→21:52)
[2019-01-05] MEDS: FUROSEMIDE 40MG/4ML VIAL IVP SCH (08:46)
[2019-01-05] MEDS: GUAIFENESIN 600MG ER TABLET PO SCH ×2 (08:46→21:53)
[2019-01-05] MEDS: FLUTICASONE PROPIONATE 50MCG/SPRAY BOTTLE BOTHNSTRLS SCH ×2 (08:47→21:46)
[2019-01-05] MEDS: ENOXAPARIN 40MG/0.4ML SYR SUBCUT SCH ×2 (12:36→23:28)
[2019-01-05] MEDS: ATORVASTATIN CALCIUM 10MG TABLET PO SCH (21:53)
[2019-01-06] VITALS (12 sets, daily range): BP systolic 132–169; BP diastolic 75–101
[2019-01-06] MEDS: IPRATROPIUM/ALBUTEROL 0.5-3(2.5)MG/3ML NEB HHN SCH ×6 (00:20→21:23)
[2019-01-06] MEDS: ACETAMINOPHEN 325MG TABLET PO PRN (05:45)
[2019-01-06] MEDS: METHYLPREDNISOLONE SOD SUCC 40 MG/ML VIAL IV SCH ×3 (05:45→20:56)
[2019-01-06] MEDS: PHENOL/SODIUM PHENOLATE 1.4% SRPAY 177ML MM PRN ×2 (06:10→20:55)
[2019-01-06 07:49] LABS: CHLORIDE 101 mEq/L (98-107)
[2019-01-06] MEDS: PANTOPRAZOLE 40MG DR TABLET PO SCH (08:08)
[2019-01-06] MEDS: GUAIFENESIN 600MG ER TABLET PO SCH ×2 (08:29→20:57)
[2019-01-06] MEDS: POTASSIUM CHLORIDE 20MEQ TABLET SR PO SCH (08:29)
[2019-01-06] MEDS: AMLODIPINE 5MG TABLET PO SCH ×2 (08:29→20:57)
[2019-01-06] MEDS: FUROSEMIDE 40MG/4ML VIAL IVP SCH (08:30)
[2019-01-06] MEDS: FLUTICASONE PROPIONATE 50MCG/SPRAY BOTTLE BOTHNSTRLS SCH ×2 (08:31→20:56)
[2019-01-06] MEDS: ENOXAPARIN 40MG/0.4ML SYR SUBCUT SCH ×2 (12:42→23:35)
[2019-01-06] MEDS: THROAT LOZENGES-BENZOCAINE/MENTH/CETYLPYRD CL LOZENGES MM PRN (15:39)
[2019-01-06] MEDS ORDERED: FUROSEMIDE 40MG/4ML VIAL IVP SCH (20:00)
[2019-01-06] MEDS: ATORVASTATIN CALCIUM 10MG TABLET PO SCH (20:56)
[2019-01-06] MEDS: HYDRALAZINE HCL 25MG TABLET PO SCH (20:57)
[2019-01-07] VITALS (15 sets, daily range): BP systolic 112–162; BP diastolic 79–99
[2019-01-07] MEDS: IPRATROPIUM/ALBUTEROL 0.5-3(2.5)MG/3ML NEB HHN SCH ×6 (00:09→21:05)
[2019-01-07] MEDS: METHYLPREDNISOLONE SOD SUCC 40 MG/ML VIAL IV SCH ×2 (05:34→13:57)
[2019-01-07 07:51] LABS: CHLORIDE 99 mEq/L (98-107)
[2019-01-07] MEDS: FUROSEMIDE 40MG/4ML VIAL IVP SCH (08:57)
[2019-01-07] MEDS: GUAIFENESIN 600MG ER TABLET PO SCH ×2 (08:57→20:47)
[2019-01-07] MEDS: POTASSIUM CHLORIDE 20MEQ TABLET SR PO SCH (08:58)
[2019-01-07] MEDS: HYDRALAZINE HCL 25MG TABLET PO SCH ×2 (08:58→20:46)
[2019-01-07] MEDS: AMLODIPINE 5MG TABLET PO SCH ×2 (08:58→20:47)
[2019-01-07] MEDS ORDERED: FAMOTIDINE 20MG TABLET PO SCH (09:00)
[2019-01-07] MEDS: PHENOL/SODIUM PHENOLATE 1.4% SRPAY 177ML MM PRN (10:19)
[2019-01-07] MEDS: ENOXAPARIN 40MG/0.4ML SYR SUBCUT SCH (12:02)
[2019-01-07] MEDS: PREDNISONE 20MG TABLET PO SCH (18:19)
[2019-01-07] MEDS: ATORVASTATIN CALCIUM 10MG TABLET PO SCH (20:37)
[2019-01-07] MEDS: PANTOPRAZOLE 40MG DR TABLET PO SCH (20:46)
[2019-01-07] MEDS: THROAT LOZENGES-BENZOCAINE/MENTH/CETYLPYRD CL LOZENGES MM PRN (21:01)
[2019-01-08] VITALS (7 sets, daily range): BP systolic 137–163; BP diastolic 77–92
[2019-01-08] MEDS: IPRATROPIUM/ALBUTEROL 0.5-3(2.5)MG/3ML NEB HHN SCH ×5 (00:42→15:12)
[2019-01-08] MEDS: ENOXAPARIN 40MG/0.4ML SYR SUBCUT SCH ×2 (01:23→10:04)
[2019-01-08] MEDS ORDERED: BARIUM SULFATE 176 GM SUSP.RECON ONE (09:06)
[2019-01-08] MEDS: FUROSEMIDE 40MG/4ML VIAL IVP SCH (09:53)
[2019-01-08] MEDS: PREDNISONE 20MG TABLET PO SCH (10:04)
[2019-01-08] MEDS: POTASSIUM CHLORIDE 20MEQ TABLET SR PO SCH (10:04)
[2019-01-08] MEDS: HYDRALAZINE HCL 25MG TABLET PO SCH (10:05)
[2019-01-08] MEDS: AMLODIPINE 5MG TABLET PO SCH (10:06)
[2019-01-08] MEDS: GUAIFENESIN 600MG ER TABLET PO SCH (10:12)
[2019-01-08] MEDS: PHENOL/SODIUM PHENOLATE 1.4% SRPAY 177ML MM PRN (10:15)
[2019-01-08] MEDS: PANTOPRAZOLE 40MG DR TABLET PO SCH (10:23)
[2019-01-08] MEDS ORDERED: FURO-151 MT (10:55)
[2019-01-08] MEDS ORDERED: P20 MT (10:55)
[2019-01-08] MEDS ORDERED: HYDR-4135 MT (10:55)
[2019-01-08] MEDS ORDERED: POTA20TA82 MT (10:55)
[2019-01-08] MEDS ORDERED: AMLO5TAB88 MT (10:55)
[2019-01-08] MEDS ORDERED: PREDNISONE 20MG TABLET PO SCH (17:00)
== END 2019-01-08 17:10 | disposition home or self-care (01) | DRG 133 ==
LOC: ER 21:27 → 5EST 01-03 00:36 → EDBEDREQ 01-03 00:38 → EDBEDREQDT 01-03 00:38 → EDBEDREQSVC 01-03 00:38 → EDBEDREQTM 01-03 00:38 → ENRESERV 01-03 03:49
PROVIDERS: ADMIT Internal Medicine; ATTEND Internal Medicine
PROC: 5A09357 Assistance with Respiratory Ventilation, Less than 24 Consecutive Hours, Continuous Positive Airway Pressure (ICD-10-PCS; 2019-01-03)
PROC: 02HV33Z Insertion of Infusion Device into Superior Vena Cava, Percutaneous Approach (ICD-10-PCS; principal; 2019-01-04)
PROC: B548ZZA Ultrasonography of Superior Vena Cava, Guidance (ICD-10-PCS; 2019-01-04)
PROC: 5A09357 Assistance with Respiratory Ventilation, Less than 24 Consecutive Hours, Continuous Positive Airway Pressure (ICD-10-PCS; 2019-01-04)
PROC: 5A09357 Assistance with Respiratory Ventilation, Less than 24 Consecutive Hours, Continuous Positive Airway Pressure (ICD-10-PCS; 2019-01-05)
PROC: 5A09357 Assistance with Respiratory Ventilation, Less than 24 Consecutive Hours, Continuous Positive Airway Pressure (ICD-10-PCS; 2019-01-06)
PROC: 5A09357 Assistance with Respiratory Ventilation, Less than 24 Consecutive Hours, Continuous Positive Airway Pressure (ICD-10-PCS; 2019-01-07)
PROC: 5A09357 Assistance with Respiratory Ventilation, Less than 24 Consecutive Hours, Continuous Positive Airway Pressure (ICD-10-PCS; 2019-01-08)
DX: J96.22 Acute and chronic respiratory failure with hypercapnia (principal); I50.33 Acute on chronic diastolic (congestive) heart failure; E87.8 Other disorders of electrolyte and fluid balance, not elsewhere classified; E66.01 Morbid (severe) obesity due to excess calories; Z99.81 Dependence on supplemental oxygen; I11.0 Hypertensive heart disease with heart failure; J44.1 Chronic obstructive pulmonary disease with (acute) exacerbation; K44.9 Diaphragmatic hernia without obstruction or gangrene; K21.9 Gastro-esophageal reflux disease without esophagitis; E78.5 Hyperlipidemia, unspecified; J31.0 Chronic rhinitis; J98.11 Atelectasis; G47.33 Obstructive sleep apnea (adult) (pediatric); E78.00 Pure hypercholesterolemia, unspecified; Z88.9 Allergy status to unspecified drugs, medicaments and biological substances; Z98.891 History of uterine scar from previous surgery; Z71.3 Dietary counseling and surveillance; Z68.43 Body mass index [BMI] 50.0-59.9, adult
CPT/HCPCS: 36415; 36600; 71045; 74230; 76937; 80048; 80305; 82375; 82805; 83605; 83880; 84484; 87070; 87430; 92611; 93005; 93970; 94640; 94660; 96365; 97162; 99285; C1725; J1650; J1940; J1956; J2920; J2930; J3475; J7512; J7620

== ENCOUNTER 2019-09-29 16:12 | Inpatient (IN) | payer MEDICAID ==
[~2019-09-29] VITALS: Ht 157.5 cm; Wt 124.3 kg
[~2019-09-29 16:12] MED LIST changes: -AMLO2.5T45 PO; +AMLO5TAB88 MT; -COR6 MT; +FLUT15.844 BOTHNSTRLS; -FLUT15.88 BOTHNSTRLS; -FLUT16SP15 BOTHNSTRLS; +FURO-151 MT; +HYDR-4135 MT; -LISI-186 MT; +P20 MT; +POTA20TA82 MT; -RANI300T4 PO
[2019-09-29] MEDS ORDERED: IPRATROPIUM BROMIDE (0.02%) 0.5MG/2.5ML NEB HHN STA (17:11)
[2019-09-29] MEDS ORDERED: ALBUTEROL (0.083%) 2.5MG/3ML NEB HHN STA (17:11)
[2019-09-29] MEDS ORDERED: METHYLPREDNISOLONE SOD SUCC 125 MG/2 ML VIAL IV STA (17:11)
[2019-09-29 17:51] LABS: BASOPHILS % 0.7 % (0.0-2.0); EOSINOPHILS % 2.1 % (0.0-5.0); HEMATOCRIT. 36.4 % (36.0-48.0); HEMOGLOBIN. 12.1 g/dL (12.0-16.0); LYMPHOCYTES % 27.6 % (20.0-50.0); MEAN CORPUSCULAR VOLUME 84.3 fL (81.0-99.0); MEAN PLATELET VOLUME 8.4 fl (7.4-10.4); MONOCYTES % 11.2 % (2.0-8.0); NEUTROPHILS % 58.4 % (40.0-76.0); PLATELET 254 x1000/uL (130-400); RED BLOOD CELL COUNT 4.32 mill/uL (4.2-5.4); RED CELL DISTRIBUTION WIDTH 15.6 % (11.6-14.6)
[2019-09-29 17:57] LABS: CHLORIDE 97 mEq/L (98-107)
[2019-09-29] MEDS ORDERED: FUROSEMIDE 20MG/2ML VIAL IVP ONE (18:00)
[2019-09-29 18:02] LABS: INR 1.1; PROTHROMBIN TIME 11.4 sec (9.6-11.0)
[2019-09-29] MEDS ORDERED: AZITHROMYCIN 500 MG in DEXT 5% WATER 250 ML IV STA (18:10)
[2019-09-29] MEDS ORDERED: ALBUTEROL 6.7GM HFA INHALER ORI ONE (18:15)
[2019-09-29] MEDS ORDERED: CEFTRIAXONE 1 G PREMIX 50 ML IV ONE (18:15)
[2019-09-29] MEDS ORDERED: MAGNESIUM 2 G PREMIX 50 ML IV ONE (18:15)
[2019-09-29] MEDS ORDERED: POTASSIUM CHLORIDE 20MEQ TABLET SR PO ONE (18:15)
[2019-09-29 18:24] LABS: CLARITY URINE CLEAR (CLEAR); COLOR URINE YELLOW (YELLOW); KETONES URINE NEGATIVE (NEGATIVE); LEUKOCYTE ESTERASE URINE NEGATIVE (NEGATIVE); NITRITE URINE NEGATIVE (NEGATIVE); OCCULT BLOOD URINE NEGATIVE (NEGATIVE); PROTEIN URINE NEGATIVE (NEGATIVE); SPECIFIC GRAVITY URINE 1.013 (1.005-1.030)
[2019-09-29] MEDS ORDERED: POTASSIUM CHLORIDE 20MEQ/PACKET PO ONE (18:30)
[2019-09-29] MEDS ORDERED: ONDANSETRON HCL 4MG/2ML INJ IV PRN (18:45)
[2019-09-29] MEDS ORDERED: CLONIDINE 0.1MG TABLET PO PRN (18:45)
[2019-09-29] MEDS ORDERED: ACETAMINOPHEN 325MG TABLET PO PRN (18:45)
[2019-09-29 18:50] LABS: D-DIMER 1.73 mg/L FEU (<0.50)
[2019-09-29 18:54] LABS: BG BASE EXCESS 4.3 mmol/L (-2.0-2.0); BG CARBOXYHEMOGLOBIN 0.1 % (0.5-1.5); BG DEOXYHEMOGLOBIN 4.5 % (0.0-5.0); BG FRACTION INSPIRED OXYGEN 28; BG HCO3 ACT 30.6 mmol/L (22.0-26.0); BG METHEMOGLOBIN 0.2 % (0.0-1.5); BG OXYGEN SATURATION 95.5 % (92.0-98.5); BG OXYHEMOGLOBIN 95.2 % (94.0-97.0); BG PCO2 53.3 mmHg (35.0-45.0); BG PH 7.377 (7.350-7.450); BG PO2 83.5 mmHg (75.0-100.0); BG SAMPLE SITE RIGHT BRACHIAL; BG TOTAL HEMOGLOBIN 12.8 g/dL (12.0-18.0); BG VENT MODE NASAL CANNULA
[2019-09-29] MEDS ORDERED: ALBUTEROL 6.7GM HFA INHALER ORI PRN (19:00)
[2019-09-29] MEDS ORDERED: ENOXAPARIN 40MG/0.4ML SYR SUBCUT SCH (20:00)
[2019-09-30 04:55] LABS: HEMATOCRIT. 38.4 % (36.0-48.0); MEAN CORPUSCULAR HEMOGLOBIN 28.8 pg (28.0-32.0); MEAN CORPUSCULAR VOLUME 85.1 fL (81.0-99.0); MEAN PLATELET VOLUME 8.2 fl (7.4-10.4); PLATELET 261 x1000/uL (130-400); RED BLOOD CELL COUNT 4.52 mill/uL (4.2-5.4); RED CELL DISTRIBUTION WIDTH 15.4 % (11.6-14.6)
[2019-09-30] MEDS: AZITHROMYCIN 500 MG TABLET PO SCH (09:27)
[2019-09-30] MEDS: FUROSEMIDE 20MG/2ML VIAL IVP SCH (09:27)
[2019-09-30 13:07] LABS: PLATELET ESTIMATE NORMAL
[2019-09-30] MEDS: FAMOTIDINE 20MG TABLET PO SCH (14:23)
[2019-09-30] MEDS: METHYLPREDNISOLONE SOD SUCC 40 MG/ML VIAL IV SCH ×2 (14:23→22:00)
[2019-09-30] MEDS ORDERED: ENOXAPARIN 100MG/ML SYR SUBCUT SCH (15:00)
[2019-09-30] MEDS ORDERED: CEFTRIAXONE 1 G PREMIX 50 ML IV SCH (18:00)
[2019-09-30] MEDS: ALBUTEROL 6.7GM HFA INHALER ORI SCH (19:30)
[2019-09-30] MEDS: ENOXAPARIN 100MG/ML SYR SUBCUT SCH (20:30)
[2019-09-30] MEDS: MONTELUKAST SODIUM 10MG TABLET PO SCH (20:30)
[2019-10-01] MEDS: ALBUTEROL 6.7GM HFA INHALER ORI SCH (06:02)
[2019-10-01] MEDS: METHYLPREDNISOLONE SOD SUCC 40 MG/ML VIAL IV SCH ×2 (06:11→14:42)
[2019-10-01 09:30] VITALS: BP 109/71
[2019-10-01] MEDS: AZITHROMYCIN 500 MG TABLET PO SCH (10:23)
[2019-10-01] MEDS: FAMOTIDINE 20MG TABLET PO SCH (10:23)
[2019-10-01] MEDS: ENOXAPARIN 100MG/ML SYR SUBCUT SCH ×2 (10:25→21:00)
[2019-10-01] MEDS: FUROSEMIDE 20MG/2ML VIAL IVP SCH (10:27)
[2019-10-01 12:00] VITALS: BP 105/71
[2019-10-01 13:15] LABS: HEMATOCRIT. 37.7 % (36.0-48.0); HEMOGLOBIN. 12.5 g/dL (12.0-16.0); MEAN CORPUSCULAR HEMOGLOBIN 27.9 pg (28.0-32.0); MEAN CORPUSCULAR VOLUME 83.9 fL (81.0-99.0); MEAN PLATELET VOLUME 8.4 fl (7.4-10.4); PLATELET 281 x1000/uL (130-400); RED CELL DISTRIBUTION WIDTH 14.7 % (11.6-14.6)
[2019-10-01] MEDS: BENZONATATE 100MG CAPSULE PO PRN (14:43)
[2019-10-01] MEDS ORDERED: MAGNESIUM/ALUMINUM HYDROXIDE/SIMETHICONE 30ML UDC PO PRN (15:00)
[2019-10-01] MEDS ORDERED: POTASSIUM CHLORIDE 20MEQ/PACKET PO SCH (15:00)
[2019-10-01 16:00] VITALS: BP 103/56
[2019-10-01] MEDS ORDERED: LORA10TA7 MT (17:12)
[2019-10-01] MEDS ORDERED: FAMO-135 MT (17:12)
[2019-10-01] MEDS ORDERED: CARV3.1242 MT (17:12)
[2019-10-01] MEDS ORDERED: LISI-186 MT (17:12)
[2019-10-01] MEDS: PREDNISONE 20MG TABLET PO SCH (18:07)
[2019-10-01] MEDS: MONTELUKAST SODIUM 10MG TABLET PO SCH (18:08)
[2019-10-01 18:48] LABS: PLATELET ESTIMATE NORMAL
[2019-10-01 20:00] VITALS: BP 108/66
[2019-10-01] MEDS: CEFTRIAXONE 1 G PREMIX 50 ML IV SCH (23:47)
[2019-10-01] MEDS: FAMOTIDINE 20MG/2ML VIAL IV SCH (23:48)
[2019-10-02] VITALS: BP 100/70
[2019-10-02 04:00] VITALS: BP 110/72
[2019-10-02 08:00] VITALS: BP 126/76
[2019-10-02] MEDS: AZITHROMYCIN 500 MG TABLET PO SCH (08:45)
[2019-10-02] MEDS: PREDNISONE 20MG TABLET PO SCH ×2 (08:45→17:03)
[2019-10-02] MEDS: FUROSEMIDE 20MG/2ML VIAL IVP SCH (08:45)
[2019-10-02] MEDS: FAMOTIDINE 20MG/2ML VIAL IV SCH ×2 (08:45→20:37)
[2019-10-02] MEDS: ENOXAPARIN 100MG/ML SYR SUBCUT SCH ×2 (08:46→20:39)
[2019-10-02 12:00] VITALS: BP 118/72
[2019-10-02] MEDS ORDERED: POTASSIUM CHLORIDE 20MEQ TABLET SR PO NR (12:00)
[2019-10-02] MEDS ORDERED: IPRATROPIUM/ALBUTEROL 0.5-3(2.5)MG/3ML NEB HHN SCH (12:00)
[2019-10-02 16:00] VITALS: BP 116/66
[2019-10-02] MEDS: ACETYLCYSTEINE 100MG/ML 10% VIAL 4ML INH SCH (16:14)
[2019-10-02] MEDS: IPRATROPIUM/ALBUTEROL 0.5-3(2.5)MG/3ML NEB HHN SCH ×2 (16:15→21:26)
[2019-10-02] MEDS: MONTELUKAST SODIUM 10MG TABLET PO SCH (17:03)
[2019-10-02 20:00] VITALS: BP 108/71
[2019-10-02] MEDS: CEFTRIAXONE 1 G PREMIX 50 ML IV SCH (20:38)
[2019-10-02] MEDS: THROAT LOZENGES-BENZOCAINE/MENTH/CETYLPYRD CL LOZENGES MM PRN (21:03)
[2019-10-03] VITALS: BP 107/55
[2019-10-03] MEDS: ACETYLCYSTEINE 100MG/ML 10% VIAL 4ML INH SCH ×2 (00:19→08:03)
[2019-10-03] MEDS: IPRATROPIUM/ALBUTEROL 0.5-3(2.5)MG/3ML NEB HHN SCH ×6 (00:23→20:06)
[2019-10-03 04:00] VITALS: BP 108/69
[2019-10-03 08:00] VITALS: BP 119/70
[2019-10-03] MEDS: PREDNISONE 20MG TABLET PO SCH (08:47)
[2019-10-03] MEDS: FUROSEMIDE 20MG/2ML VIAL IVP SCH (08:47)
[2019-10-03] MEDS: AZITHROMYCIN 500 MG TABLET PO SCH (08:47)
[2019-10-03] MEDS: FAMOTIDINE 20MG/2ML VIAL IV SCH ×2 (08:48→22:28)
[2019-10-03] MEDS: ENOXAPARIN 100MG/ML SYR SUBCUT SCH ×2 (08:48→21:43)
[2019-10-03 12:00] VITALS: BP 120/70
[2019-10-03 16:00] VITALS: BP 117/72
[2019-10-03] MEDS: MONTELUKAST SODIUM 10MG TABLET PO SCH (17:16)
[2019-10-03 20:00] VITALS: BP 133/65
[2019-10-03] MEDS: CEFTRIAXONE 1 G PREMIX 50 ML IV SCH (22:28)
[2019-10-04] VITALS: BP 130/77
[2019-10-04] MEDS: ACETYLCYSTEINE 100MG/ML 10% VIAL 4ML INH SCH ×2 (00:10→09:33)
[2019-10-04] MEDS: IPRATROPIUM/ALBUTEROL 0.5-3(2.5)MG/3ML NEB HHN SCH ×6 (00:10→21:01)
[2019-10-04 04:00] VITALS: BP 115/71
[2019-10-04] MEDS: THROAT LOZENGES-BENZOCAINE/MENTH/CETYLPYRD CL LOZENGES MM PRN (04:22)
[2019-10-04 08:59] VITALS: BP 96/49
[2019-10-04] MEDS: FAMOTIDINE 20MG/2ML VIAL IV SCH ×2 (09:06→20:24)
[2019-10-04] MEDS: FUROSEMIDE 20MG/2ML VIAL IVP SCH (09:06)
[2019-10-04] MEDS: AZITHROMYCIN 500 MG TABLET PO SCH (09:07)
[2019-10-04] MEDS: PREDNISONE 20MG TABLET PO SCH (09:07)
[2019-10-04] MEDS: ENOXAPARIN 100MG/ML SYR SUBCUT SCH ×2 (09:07→20:25)
[2019-10-04] MEDS ORDERED: EZ-HD SUSPENSION(BARIUM SULFATE 340GM) PO ONE (11:08)
[2019-10-04] MEDS ORDERED: BARIUM SULFATE 176 GM SUSP.RECON ONE (11:09)
[2019-10-04] MEDS ORDERED: SIMETHICONE/SOD BICARB/CIT AC 1 EACH GRAN.EF.PK ONE (11:10)
[2019-10-04 12:25] VITALS: BP 137/86
[2019-10-04] MEDS: ATROPINE SULFATE 1% OPHTH 2ML SL PRN (12:29)
[2019-10-04] MEDS: BENZONATATE 100MG CAPSULE PO PRN (12:29)
[2019-10-04 16:16] VITALS: BP 124/75
[2019-10-04] MEDS: MONTELUKAST SODIUM 10MG TABLET PO SCH (16:30)
[2019-10-04 19:43] LABS: ETHANOL BLOOD < 10 mg/dL
[2019-10-04 19:48] LABS: T4 FREE 1.17 ng/dL (0.76-1.46)
[2019-10-04 20:00] VITALS: BP 108/69
[2019-10-04] MEDS: CEFTRIAXONE 1 G PREMIX 50 ML IV SCH (20:24)
[2019-10-04 23:52] LABS: *BARBITURATES SCREEN URINE NEGATIVE (NEGATIVE)
[2019-10-04 23:53] LABS: *AMPHETAMINES SCREEN URINE NEGATIVE (NEGATIVE); *BENZODIAZEPINES SCREEN URINE NEGATIVE (NEGATIVE); *COCAINE SCREEN URINE NEGATIVE (NEGATIVE); CANNABINOID URINE SCREEN NEGATIVE (NEGATIVE); METHADONE URINE SCREEN NEGATIVE (NEGATIVE); OPIATES URINE SCREEN NEGATIVE (NEGATIVE); PHENCYCLIDINE URINE SCREEN NEGATIVE (NEGATIVE)
[2019-10-05] VITALS: BP 113/53
[2019-10-05 04:00] VITALS: BP 98/56
[2019-10-05] MEDS: IPRATROPIUM/ALBUTEROL 0.5-3(2.5)MG/3ML NEB HHN SCH ×4 (04:56→17:15)
[2019-10-05 08:00] VITALS: BP 110/66
[2019-10-05] MEDS: FUROSEMIDE 20MG/2ML VIAL IVP SCH (08:35)
[2019-10-05] MEDS: PREDNISONE 20MG TABLET PO SCH (08:35)
[2019-10-05] MEDS: BENZONATATE 100MG CAPSULE PO PRN (08:35)
[2019-10-05] MEDS: AZITHROMYCIN 500 MG TABLET PO SCH (08:35)
[2019-10-05] MEDS: FAMOTIDINE 20MG/2ML VIAL IV SCH (08:35)
[2019-10-05] MEDS: ENOXAPARIN 100MG/ML SYR SUBCUT SCH (08:36)
[2019-10-05] MEDS: ACETYLCYSTEINE 100MG/ML 10% VIAL 4ML INH SCH ×2 (09:15→17:15)
[2019-10-05 11:02] LABS: BASOPHILS % 0.4 % (0.0-2.0); EOSINOPHILS % 1.2 % (0.0-5.0); HEMATOCRIT. 37.7 % (36.0-48.0); HEMOGLOBIN. 12.4 g/dL (12.0-16.0); LYMPHOCYTES % 28.7 % (20.0-50.0); MEAN CORPUSCULAR HEMOGLOBIN 27.9 pg (28.0-32.0); MEAN PLATELET VOLUME 8.3 fl (7.4-10.4); MONOCYTES % 8.3 % (2.0-8.0); NEUTROPHILS % 61.4 % (40.0-76.0); PLATELET 253 x1000/uL (130-400); RED BLOOD CELL COUNT 4.43 mill/uL (4.2-5.4); RED CELL DISTRIBUTION WIDTH 15.3 % (11.6-14.6)
[2019-10-05 12:00] VITALS: BP 113/67
[2019-10-05] MEDS ORDERED: POTASSIUM CHLORIDE 20MEQ TABLET SR PO NR ×2 (12:00→15:00)
[2019-10-05] MEDS: THROAT LOZENGES-BENZOCAINE/MENTH/CETYLPYRD CL LOZENGES MM PRN (12:03)
[2019-10-05] MEDS ORDERED: FOLIC ACID 1MG TABLET PO SCH (12:45)
[2019-10-05] MEDS ORDERED: LORAZEPAM 2MG/ML CPJ IV NR (15:45)
[2019-10-05] MEDS: MONTELUKAST SODIUM 10MG TABLET PO SCH (16:55)
[2019-10-05 17:00] VITALS: BP 107/73
[2019-10-05 17:10] VITALS: BP 107/73
[2019-10-05] MEDS: ATROPINE SULFATE 1% OPHTH 2ML SL PRN (18:45)
[2019-10-05] MEDS ORDERED: ENOXAPARIN 120MG/0.8ML SYR SUBCUT SCH (21:00)
[2019-10-10 10:08] LABS: AChR BLOCKING ABS SERUM 23 % (0-25)
== END 2019-10-05 19:35 | disposition home health service (06) | DRG 720 ==
LOC: ER 16:12 → MICUSO 18:04 → EDBEDREQ 18:08 → EDBEDREQSVC 18:08 → EDBEDREQTM 18:08 → 5WST 10-01 08:11
PROVIDERS: ADMIT Internal Medicine; ATTEND Internal Medicine
PROC: 5A09357 Assistance with Respiratory Ventilation, Less than 24 Consecutive Hours, Continuous Positive Airway Pressure (ICD-10-PCS; principal; 2019-10-01)
PROC: 5A09357 Assistance with Respiratory Ventilation, Less than 24 Consecutive Hours, Continuous Positive Airway Pressure (ICD-10-PCS; 2019-10-02)
PROC: 5A09357 Assistance with Respiratory Ventilation, Less than 24 Consecutive Hours, Continuous Positive Airway Pressure (ICD-10-PCS; 2019-10-03)
PROC: 5A09357 Assistance with Respiratory Ventilation, Less than 24 Consecutive Hours, Continuous Positive Airway Pressure (ICD-10-PCS; 2019-10-04)
PROC: BD11YZZ Fluoroscopy of Esophagus using Other Contrast (ICD-10-PCS; 2019-10-04)
DX: A41.9 Sepsis, unspecified organism (principal); J18.9 Pneumonia, unspecified organism; J96.20 Acute and chronic respiratory failure, unspecified whether with hypoxia or hypercapnia; I50.33 Acute on chronic diastolic (congestive) heart failure; E87.8 Other disorders of electrolyte and fluid balance, not elsewhere classified; D68.59 Other primary thrombophilia; E66.01 Morbid (severe) obesity due to excess calories; I11.0 Hypertensive heart disease with heart failure; J44.0 Chronic obstructive pulmonary disease with (acute) lower respiratory infection; J44.1 Chronic obstructive pulmonary disease with (acute) exacerbation; K22.8 Other specified diseases of esophagus; J30.9 Allergic rhinitis, unspecified; E78.5 Hyperlipidemia, unspecified; Z20.828 Contact with and (suspected) exposure to other viral communicable diseases; E87.6 Hypokalemia; G47.33 Obstructive sleep apnea (adult) (pediatric); R13.12 Dysphagia, oropharyngeal phase; D72.810 Lymphocytopenia; R47.02 Dysphasia; K22.0 Achalasia of cardia; K21.9 Gastro-esophageal reflux disease without esophagitis; Z87.891 Personal history of nicotine dependence; Z99.81 Dependence on supplemental oxygen; Z68.43 Body mass index [BMI] 50.0-59.9, adult; Z88.4 Allergy status to anesthetic agent; Z88.6 Allergy status to analgesic agent; Z88.5 Allergy status to narcotic agent; Z79.899 Other long term (current) drug therapy; Z98.891 History of uterine scar from previous surgery; Z71.3 Dietary counseling and surveillance; N17.0 Acute kidney failure with tubular necrosis
CPT/HCPCS: 36415; 36600; 70544; 70553; 71045; 74220; 80048; 80053; 80305; 80320; 81003; 82140; 82375; 82550; 82607; 82728; 82746; 82805; 83036; 83519; 83605; 83615; 83880; 84145; 84439; 84443; 84481; 84484; 85025; 85379; 85384; 86140; 87804; 92610; 93005; 93306; 94640; 94660; 96365; 97116; 97162; 97166; 97535; 99291; J0456; J0696; J1650; J1940; J2060; J2920; J2930; J3475; J3490; J7060; J7512; J7517; J7608; G0480; U0003-CS

== ENCOUNTER 2019-11-25 23:27 | Inpatient (IN) | payer MEDICAID ==
[~2019-11-25] VITALS: Ht 157.5 cm; Wt 119.7 kg
[~2019-11-25 23:27] MED LIST changes: -AMLO5TAB88 MT; +FAMO-135 MT; -FURO-151 MT; -HYDR-4135 MT; +LISI-186 MT; +LORA10TA7 MT; -P20 MT
[2019-11-26] MEDS ORDERED: ASPIRIN 81MG TABLET PO ONE (00:30)
[2019-11-26] MEDS ORDERED: FUROSEMIDE 40MG/4ML VIAL IVP ONE (01:45)
[2019-11-26 01:53] LABS: BASOPHILS % 0.9 % (0.0-2.0); HEMATOCRIT. 34.3 % (36.0-48.0); LYMPHOCYTES % 32.6 % (20.0-50.0); MEAN CORPUSCULAR HEMOGLOBIN 27.4 pg (28.0-32.0); MEAN CORPUSCULAR VOLUME 85.3 fL (81.0-99.0); MEAN PLATELET VOLUME 7.8 fl (7.4-10.4); MONOCYTES % 8.2 % (2.0-8.0); NEUTROPHILS % 55.3 % (40.0-76.0); PLATELET 286 x1000/uL (130-400); RED BLOOD CELL COUNT 4.02 mill/uL (4.2-5.4); RED CELL DISTRIBUTION WIDTH 16.5 % (11.6-14.6)
[2019-11-26 02:01] LABS: CHLORIDE 104 mEq/L (98-107)
[2019-11-26 04:00] VITALS: BP 132/81
[2019-11-26 05:00] VITALS: BP 132/81
== END 2019-11-26 07:20 | disposition left against medical advice (07) | DRG 194 ==
LOC: ER 23:27 → 7WST 11-26 03:15 → ENRESERV 11-26 04:04
PROVIDERS: ADMIT Internal Medicine; ATTEND Internal Medicine
DX: I11.0 Hypertensive heart disease with heart failure (principal); R06.02 Shortness of breath; I50.9 Heart failure, unspecified; E66.9 Obesity, unspecified; Z20.828 Contact with and (suspected) exposure to other viral communicable diseases; J44.9 Chronic obstructive pulmonary disease, unspecified; Z53.29 Procedure and treatment not carried out because of patient's decision for other reasons; R07.9 Chest pain, unspecified; Z87.891 Personal history of nicotine dependence; Z99.81 Dependence on supplemental oxygen; Z88.5 Allergy status to narcotic agent; Z88.8 Allergy status to other drugs, medicaments and biological substances; Z79.899 Other long term (current) drug therapy; Z68.42 Body mass index [BMI] 45.0-49.9, adult
CPT/HCPCS: 36415; 71045; 80053; 83605; 83880; 84484; 85025; 87635; 93005; 99291; J1940

== ENCOUNTER 2020-09-19 17:59 | Inpatient (IN) | payer MEDICAID ==
[~2020-09-19] VITALS: Ht 157.5 cm; Wt 123.9 kg
[2020-09-19] MEDS ORDERED: NITROGLYCERIN OINT 1GM/INCH UDPKT TD ONE (19:30)
[2020-09-19] MEDS ORDERED: FUROSEMIDE 40MG/4ML VIAL IV ONE (19:30)
[2020-09-19 20:13] LABS: BASOPHILS % 0.6 % (0.0-2.0); EOSINOPHILS % 3.3 % (0.0-5.0); HEMATOCRIT. 40.4 % (36.0-48.0); HEMOGLOBIN. 13.6 g/dL (12.0-16.0); LYMPHOCYTES % 24.8 % (20.0-50.0); MEAN CORPUSCULAR HEMOGLOBIN 27.7 pg (28.0-32.0); MEAN CORPUSCULAR VOLUME 82.1 fL (81.0-99.0); MEAN PLATELET VOLUME 7.9 fl (7.4-10.4); NEUTROPHILS % 62.3 % (40.0-76.0); PLATELET 262 x1000/uL (130-400); RED BLOOD CELL COUNT 4.92 mill/uL (4.2-5.4); RED CELL DISTRIBUTION WIDTH 16.7 % (11.6-14.6)
[2020-09-19 21:32] LABS: CHLORIDE 94 mEq/L (98-107)
[2020-09-19 21:35] LABS: INR 1.1; PARTIAL THROMBOPLASTIN TIME 28.1 sec (23.4-31.0); PROTHROMBIN TIME 11.7 sec (9.6-11.0)
[2020-09-19] MEDS ORDERED: POTASSIUM CHLORIDE 20MEQ TABLET SR PO ONE (21:45)
[2020-09-19] MEDS ORDERED: ONDANSETRON HCL 4MG/2ML INJ IV ONE (22:00)
[2020-09-19] MEDS ORDERED: ENOXAPARIN 120MG/0.8ML SYR SUBCUT ONE (22:30)
[2020-09-20] VITALS (8 sets, daily range): BP systolic 114–128; BP diastolic 58–91
[2020-09-20] MEDS ORDERED: NA PHOS,M-B/NA PHOS,DI-BA ENEMA 118ML PR PRN (08:00)
[2020-09-20] MEDS ORDERED: DIPHENHYDRAMINE 50MG/ML VIAL IV PRN (08:00)
[2020-09-20] MEDS ORDERED: IPRATROPIUM/ALBUTEROL 0.5-3(2.5)MG/3ML NEB NEB PRN (08:00)
[2020-09-20] MEDS ORDERED: MAGNESIUM/ALUMINUM HYDROXIDE/SIMETHICONE 30ML UDC PO PRN (08:00)
[2020-09-20] MEDS ORDERED: CLONIDINE 0.1MG TABLET PO PRN (08:00)
[2020-09-20] MEDS ORDERED: LORAZEPAM 2MG/ML CPJ IV PRN (08:00)
[2020-09-20] MEDS ORDERED: GUAIFENESIN 200MG/10ML SUGAR FREE UDC PO PRN (08:00)
[2020-09-20] MEDS ORDERED: HYDROMORPHONE HCL/PF 2MG/ML CPJ IV PRN (08:00)
[2020-09-20] MEDS ORDERED: ONDANSETRON HCL 4MG/2ML INJ IV PRN (08:00)
[2020-09-20] MEDS ORDERED: ACETAMINOPHEN 325MG TABLET PO PRN (08:00)
[2020-09-20] MEDS ORDERED: ENOXAPARIN 40MG/0.4ML SYR SUBCUT SCH ×2 (08:00→09:00)
[2020-09-20] MEDS: ENOXAPARIN 30MG/0.3ML SYR SUBCUT SCH ×2 (12:00→21:03)
[2020-09-20] MEDS ORDERED: CARV3.1242 PO (12:52)
[2020-09-20 13:06] LABS: CHLORIDE 94 mEq/L (98-107)
[2020-09-20 14:52] LABS: BG BASE EXCESS 10.2 mmol/L (-2.0-2.0); BG CARBOXYHEMOGLOBIN 0.7 % (0.5-1.5); BG DEOXYHEMOGLOBIN 3.3 % (0.0-5.0); BG FRACTION INSPIRED OXYGEN 28; BG HCO3 ACT 36.4 mmol/L (22.0-26.0); BG METHEMOGLOBIN 0.2 % (0.0-1.5); BG OXYGEN SATURATION 96.7 % (92.0-98.5); BG OXYHEMOGLOBIN 95.8 % (94.0-97.0); BG PCO2 54.7 mmHg (35.0-45.0); BG PH 7.441 (7.350-7.450); BG PO2 84.8 mmHg (75.0-100.0); BG SAMPLE SITE RIGHT RADIAL; BG TOTAL HEMOGLOBIN 14.5 g/dL (12.0-18.0); BG VENT MODE NASAL CANNULA
[2020-09-20] MEDS: METHYLPREDNISOLONE SOD SUCC 40 MG/ML VIAL IV SCH ×2 (14:59→21:02)
[2020-09-20] MEDS: IPRATROPIUM/ALBUTEROL 0.5-3(2.5)MG/3ML NEB HHN SCH ×2 (16:30→22:06)
[2020-09-20] MEDS ORDERED: POTASSIUM CHLORIDE 20MEQ TABLET SR PO NR (17:45)
[2020-09-21] VITALS (12 sets, daily range): BP systolic 110–150; BP diastolic 55–107
[2020-09-21] MEDS: IPRATROPIUM/ALBUTEROL 0.5-3(2.5)MG/3ML NEB HHN SCH ×6 (01:29→21:28)
[2020-09-21] MEDS: METHYLPREDNISOLONE SOD SUCC 40 MG/ML VIAL IV SCH ×3 (05:01→21:08)
[2020-09-21 07:16] LABS: BASOPHILS % 0.5 % (0.0-2.0); EOSINOPHILS % 0.3 % (0.0-5.0); HEMATOCRIT. 38.6 % (36.0-48.0); HEMOGLOBIN. 12.6 g/dL (12.0-16.0); LYMPHOCYTES % 12.8 % (20.0-50.0); MEAN CORPUSCULAR HEMOGLOBIN 27.2 pg (28.0-32.0); MEAN CORPUSCULAR VOLUME 83.4 fL (81.0-99.0); MONOCYTES % 1.7 % (2.0-8.0); NEUTROPHILS % 84.7 % (40.0-76.0); PLATELET 286 x1000/uL (130-400); RED BLOOD CELL COUNT 4.63 mill/uL (4.2-5.4); RED CELL DISTRIBUTION WIDTH 16.5 % (11.6-14.6)
[2020-09-21 08:17] LABS: CHLORIDE 96 mEq/L (98-107)
[2020-09-21 08:24] LABS: LDL CHOLESTEROL 96 mg/dL (5-100)
[2020-09-21 08:26] LABS: HDL CHOLESTEROL 87 mg/dL (40-59); T4 FREE 1.45 ng/dL (0.76-1.46)
[2020-09-21] MEDS: ENOXAPARIN 30MG/0.3ML SYR SUBCUT SCH ×2 (09:54→21:09)
[2020-09-21] MEDS ORDERED: FAMOTIDINE(NEO) 1MG/ML SUSP PO SCH (10:15)
[2020-09-21] MEDS ORDERED: PANTOPRAZOLE 40MG DR TABLET PO SCH (10:15)
[2020-09-21] MEDS ORDERED: MEDICATION NOT ON FORMULARY EA (Fluticasone Propionate 2 SPR) BOTHNSTRLS SCH (10:15)
[2020-09-21] MEDS: CARVEDILOL 3.125 MG TABLET PO SCH ×2 (10:59→21:11)
[2020-09-21] MEDS: DOCUSATE SODIUM 100MG CAPSULE PO PRN (10:59)
[2020-09-21] MEDS: POTASSIUM CHLORIDE 20MEQ TABLET SR PO SCH ×2 (11:00→17:42)
[2020-09-21] MEDS: LISINOPRIL 5MG TABLET PO SCH (11:00)
[2020-09-21] MEDS: LORATADINE 10MG TABLET PO SCH (11:00)
[2020-09-21] MEDS: FUROSEMIDE 40MG TABLET PO SCH ×2 (11:00→17:42)
[2020-09-21] MEDS: FAMOTIDINE 20MG TABLET PO SCH ×2 (11:01→21:11)
[2020-09-21] MEDS ORDERED: IBUPROFEN 800MG TABLET PO PRN (12:00)
[2020-09-21] MEDS: FLUTICASONE PROPIONATE 50MCG/SPRAY BOTTLE BOTHNSTRLS SCH (13:00)
[2020-09-21] MEDS: MONTELUKAST SODIUM 10MG TABLET PO SCH (17:42)
[2020-09-21] MEDS ORDERED: LOVASTATIN 20 MG PO SCH (21:00)
[2020-09-21] MEDS: ATORVASTATIN CALCIUM 10MG TABLET PO SCH (21:10)
[2020-09-22] VITALS (9 sets, daily range): BP systolic 108–135; BP diastolic 56–90
[2020-09-22] MEDS: IPRATROPIUM/ALBUTEROL 0.5-3(2.5)MG/3ML NEB HHN SCH ×6 (01:21→21:11)
[2020-09-22] MEDS: METHYLPREDNISOLONE SOD SUCC 40 MG/ML VIAL IV SCH ×3 (05:19→22:14)
[2020-09-22] MEDS: FUROSEMIDE 40MG TABLET PO SCH ×2 (06:26→17:19)
[2020-09-22] MEDS: POTASSIUM CHLORIDE 20MEQ TABLET SR PO SCH ×2 (08:34→17:19)
[2020-09-22] MEDS: DOCUSATE SODIUM 100MG CAPSULE PO PRN (08:35)
[2020-09-22] MEDS: LISINOPRIL 5MG TABLET PO SCH (08:35)
[2020-09-22] MEDS: FAMOTIDINE 20MG TABLET PO SCH ×2 (08:35→22:15)
[2020-09-22] MEDS: ENOXAPARIN 30MG/0.3ML SYR SUBCUT SCH ×2 (08:36→22:14)
[2020-09-22] MEDS: LORATADINE 10MG TABLET PO SCH (08:36)
[2020-09-22] MEDS: CARVEDILOL 3.125 MG TABLET PO SCH ×2 (08:36→22:17)
[2020-09-22] MEDS: FLUTICASONE PROPIONATE 50MCG/SPRAY BOTTLE BOTHNSTRLS SCH (08:41)
[2020-09-22] MEDS: MONTELUKAST SODIUM 10MG TABLET PO SCH (17:21)
[2020-09-22] MEDS: ATORVASTATIN CALCIUM 10MG TABLET PO SCH (22:15)
[2020-09-23] VITALS (10 sets, daily range): BP systolic 113–133; BP diastolic 64–83
[2020-09-23] MEDS: IPRATROPIUM/ALBUTEROL 0.5-3(2.5)MG/3ML NEB HHN SCH ×4 (00:26→12:01)
[2020-09-23] MEDS: METHYLPREDNISOLONE SOD SUCC 40 MG/ML VIAL IV SCH ×2 (05:44→14:00)
[2020-09-23] MEDS: FUROSEMIDE 40MG TABLET PO SCH (06:20)
[2020-09-23] MEDS: POTASSIUM CHLORIDE 20MEQ TABLET SR PO SCH (08:09)
[2020-09-23] MEDS: LISINOPRIL 5MG TABLET PO SCH (08:10)
[2020-09-23] MEDS: FLUTICASONE PROPIONATE 50MCG/SPRAY BOTTLE BOTHNSTRLS SCH (08:10)
[2020-09-23] MEDS: LORATADINE 10MG TABLET PO SCH (08:10)
[2020-09-23] MEDS: FAMOTIDINE 20MG TABLET PO SCH (08:10)
[2020-09-23] MEDS: CARVEDILOL 3.125 MG TABLET PO SCH (08:10)
[2020-09-23] MEDS: ENOXAPARIN 30MG/0.3ML SYR SUBCUT SCH (08:11)
== END 2020-09-23 15:22 | disposition home or self-care (01) | DRG 133 ==
LOC: ER 17:59 → 3WST 21:56 → ENRESERV 09-20 08:30
PROVIDERS: ADMIT Internal Medicine; ATTEND Internal Medicine
PROC: 5A09357 Assistance with Respiratory Ventilation, Less than 24 Consecutive Hours, Continuous Positive Airway Pressure (ICD-10-PCS; principal; 2020-09-20)
PROC: 5A09357 Assistance with Respiratory Ventilation, Less than 24 Consecutive Hours, Continuous Positive Airway Pressure (ICD-10-PCS; 2020-09-21)
PROC: 5A09357 Assistance with Respiratory Ventilation, Less than 24 Consecutive Hours, Continuous Positive Airway Pressure (ICD-10-PCS; 2020-09-22)
PROC: 5A09357 Assistance with Respiratory Ventilation, Less than 24 Consecutive Hours, Continuous Positive Airway Pressure (ICD-10-PCS; 2020-09-23)
DX: J96.21 Acute and chronic respiratory failure with hypoxia (principal); E88.81 Metabolic syndrome and other insulin resistance; I24.9 Acute ischemic heart disease, unspecified; I11.0 Hypertensive heart disease with heart failure; E66.2 Morbid (severe) obesity with alveolar hypoventilation; I50.9 Heart failure, unspecified; J44.1 Chronic obstructive pulmonary disease with (acute) exacerbation; R13.10 Dysphagia, unspecified; I42.9 Cardiomyopathy, unspecified; I48.91 Unspecified atrial fibrillation; E78.00 Pure hypercholesterolemia, unspecified; E87.6 Hypokalemia; J30.9 Allergic rhinitis, unspecified; E78.5 Hyperlipidemia, unspecified; I25.10 Atherosclerotic heart disease of native coronary artery without angina pectoris; Z87.01 Personal history of pneumonia (recurrent); Z87.891 Personal history of nicotine dependence; Z68.43 Body mass index [BMI] 50.0-59.9, adult; Z99.81 Dependence on supplemental oxygen; Z79.51 Long term (current) use of inhaled steroids; Z79.899 Other long term (current) drug therapy; Z88.6 Allergy status to analgesic agent; Z88.8 Allergy status to other drugs, medicaments and biological substances; Z98.891 History of uterine scar from previous surgery; Z71.3 Dietary counseling and surveillance
CPT/HCPCS: 36415; 36600; 71045; 78580; 80048; 80053; 80061; 82375; 82805; 83880; 84439; 84443; 84484; 85025; 85379; 92610; 93005; 93970; 94002; 94640; 94660; 99285; J1650; J1940; J2405; J2920

== ENCOUNTER 2021-04-04 15:49 | Inpatient (IN) | payer MEDICAID ==
[~2021-04-04] VITALS: Ht 157.5 cm; Wt 116.2 kg
[~2021-04-04 15:49] MED LIST changes: -ATROV IH; +CARV3.1242 PO; -FAMO-135 MT; -TIOT18CA3 INH
[2021-04-04] MEDS ORDERED: IPRATROPIUM BROMIDE (0.02%) 0.5MG/2.5ML NEB HHN STA (16:00)
[2021-04-04] MEDS ORDERED: METHYLPREDNISOLONE SOD SUCC 125 MG/2 ML VIAL IV STA (16:00)
[2021-04-04] MEDS ORDERED: FAMOTIDINE 20MG/2ML VIAL IV ONE (16:15)
[2021-04-04] MEDS ORDERED: DIPHENHYDRAMINE 50MG/ML VIAL IV ONE (16:15)
[2021-04-04 19:51] LABS: CHLORIDE 105 mEq/L (98-107)
[2021-04-04 19:52] LABS: HEMATOCRIT. 40.6 % (36.0-48.0); HEMOGLOBIN. 13.1 g/dL (12.0-16.0); MEAN CORPUSCULAR HEMOGLOBIN 27.1 pg (28.0-32.0); MEAN CORPUSCULAR VOLUME 84.5 fL (81.0-99.0); MEAN PLATELET VOLUME 8.4 fl (7.4-10.4); PLATELET 327 x1000/uL (130-400); RED BLOOD CELL COUNT 4.81 mill/uL (4.2-5.4); RED CELL DISTRIBUTION WIDTH 17.7 % (11.6-14.6)
[2021-04-04 21:15] LABS: PLATELET ESTIMATE NORMAL
[2021-04-04] MEDS ORDERED: CEFTRIAXONE 1 G PREMIX 50 ML IV ONE (22:00)
[2021-04-04] MEDS ORDERED: AZITHROMYCIN 500MG/250ML 250 ML IV ONE (22:00)
[2021-04-05] MEDS ORDERED: DIPHENHYDRAMINE 50MG/ML VIAL IV NR (02:00)
[2021-04-05] MEDS ORDERED: FAMOTIDINE 20MG/2ML VIAL IV NR (02:00)
[2021-04-05] MEDS ORDERED: METHYLPREDNISOLONE SOD SUCC 125 MG/2 ML VIAL IV NR (02:00)
[2021-04-05] MEDS: ALBUTEROL (0.083%) 2.5MG/3ML NEB HHN SCH ×6 (05:00→06:04)
[2021-04-05] MEDS ORDERED: IBUPROFEN 600MG TABLET PO PRN (12:15)
[2021-04-05] MEDS ORDERED: ACETAMINOPHEN 325MG TABLET PO PRN (13:00)
[2021-04-05] MEDS ORDERED: ONDANSETRON HCL 4MG/2ML INJ IV PRN (13:00)
[2021-04-05] MEDS: METHYLPREDNISOLONE SOD SUCC 125 MG/2 ML VIAL IV SCH ×2 (14:00→22:22)
[2021-04-05] MEDS: ENOXAPARIN 30MG/0.3ML SYR SUBCUT SCH ×2 (14:16→21:00)
[2021-04-05] MEDS: FUROSEMIDE 40MG/4ML VIAL IVP SCH (14:48)
[2021-04-05] MEDS: CLONIDINE 0.1MG TABLET PO PRN (17:01)
[2021-04-05] MEDS ORDERED: CEFTRIAXONE 1 G PREMIX 50 ML IV SCH (23:00)
[2021-04-05] MEDS ORDERED: AZITHROMYCIN 500 MG in DEXT 5% WATER 250 ML IV SCH (23:00)
[2021-04-06] VITALS (8 sets, daily range): BP systolic 134–169; BP diastolic 54–94
[2021-04-06] MEDS: IPRATROPIUM BROMIDE (0.02%) 0.5MG/2.5ML NEB HHN SCH ×4 (04:22→15:51)
[2021-04-06] MEDS: METHYLPREDNISOLONE SOD SUCC 125 MG/2 ML VIAL IV SCH ×3 (05:39→21:08)
[2021-04-06 06:30] LABS: BASOPHILS % 0.3 % (0.0-2.0); HEMATOCRIT. 37.9 % (36.0-48.0); HEMOGLOBIN. 12.1 g/dL (12.0-16.0); LYMPHOCYTES % 9.4 % (20.0-50.0); MEAN CORPUSCULAR HEMOGLOBIN 27.2 pg (28.0-32.0); MEAN PLATELET VOLUME 8.1 fl (7.4-10.4); MONOCYTES % 1.7 % (2.0-8.0); NEUTROPHILS % 88.6 % (40.0-76.0); PLATELET 299 x1000/uL (130-400); RED BLOOD CELL COUNT 4.46 mill/uL (4.2-5.4); RED CELL DISTRIBUTION WIDTH 17.3 % (11.6-14.6)
[2021-04-06 06:44] LABS: CHLORIDE 104 mEq/L (98-107)
[2021-04-06 06:51] LABS: CREATINE KINASE 73 IU/L (26-192)
[2021-04-06 06:54] LABS: CREATINE KINASE MB FRACTION 1.1 ng/mL (0.5-3.6)
[2021-04-06] MEDS ORDERED: LIDOCAINE HCL/PF 1% 2ML VIAL ONE (07:00)
[2021-04-06] MEDS: ENOXAPARIN 30MG/0.3ML SYR SUBCUT SCH ×2 (08:54→21:08)
[2021-04-06] MEDS: FUROSEMIDE 40MG/4ML VIAL IVP SCH ×2 (08:54→17:44)
[2021-04-06 10:54] LABS: BG BASE EXCESS 4.8 mmol/L (-2.0-2.0); BG CARBOXYHEMOGLOBIN 0.1 % (0.5-1.5); BG DEOXYHEMOGLOBIN 0.6 % (0.0-5.0); BG FRACTION INSPIRED OXYGEN 100; BG HCO3 ACT 31.2 mmol/L (22.0-26.0); BG METHEMOGLOBIN 0.2 % (0.0-1.5); BG OXYGEN SATURATION 99.4 % (92.0-98.5); BG OXYHEMOGLOBIN 99.1 % (94.0-97.0); BG PCO2 53.6 mmHg (35.0-45.0); BG PH 7.383 (7.350-7.450); BG PO2 205.9 mmHg (75.0-100.0); BG SAMPLE SITE RIGHT RADIAL; BG TOTAL HEMOGLOBIN 13.9 g/dL (12.0-18.0); BG VENT MODE MASK - NRB
[2021-04-06] MEDS ORDERED: LIDOCAINE HCL 1% 20ML VIAL (Pyxis) INJ ONE (13:33)
[2021-04-06] MEDS ORDERED: DIGOXIN 500MCG/2ML AMP IV NR (15:45)
[2021-04-06] MEDS ORDERED: DILTIAZEM HCL 5MG/ML 5ML VIAL IV NR (16:15)
[2021-04-06] MEDS ORDERED: DILTIAZEM HCL 125 MG in DEXT 5% WATER 100 ML IV SCH (17:30)
[2021-04-06] MEDS ORDERED: DIGOXIN 500MCG/2ML AMP IV PRN (17:30)
[2021-04-06] MEDS: DILTIAZEM HCL 30MG TABLET PO SCH ×2 (17:45→23:26)
[2021-04-06] MEDS ORDERED: DIGOXIN 500MCG/2ML AMP IV SCH (18:00)
[2021-04-06] MEDS ORDERED: DILTIAZEM HCL 125 MG in DEXT 5% WATER 100 ML IV PRN (20:00)
[2021-04-06] MEDS: AZITHROMYCIN 500 MG TABLET PO SCH (21:08)
[2021-04-06] MEDS: CEFTRIAXONE 1,000 MG in DEXTROSE 5% WATER 50 ML IV SCH (23:26)
[2021-04-07] VITALS (11 sets, daily range): BP systolic 127–159; BP diastolic 58–94
[2021-04-07] MEDS: FUROSEMIDE 40MG/4ML VIAL IVP SCH ×2 (06:21→18:40)
[2021-04-07] MEDS: METHYLPREDNISOLONE SOD SUCC 125 MG/2 ML VIAL IV SCH ×3 (06:22→21:12)
[2021-04-07] MEDS: DILTIAZEM HCL 30MG TABLET PO SCH ×2 (06:22→12:37)
[2021-04-07 08:00] LABS: CHLORIDE 103 mEq/L (98-107)
[2021-04-07 08:12] LABS: HEMATOCRIT. 39.8 % (36.0-48.0); HEMOGLOBIN. 12.9 g/dL (12.0-16.0); MEAN CORPUSCULAR HEMOGLOBIN 27.5 pg (28.0-32.0); MEAN PLATELET VOLUME 9.4 fl (7.4-10.4); PLATELET 272 x1000/uL (130-400); RED BLOOD CELL COUNT 4.68 mill/uL (4.2-5.4); RED CELL DISTRIBUTION WIDTH 17.2 % (11.6-14.6)
[2021-04-07] MEDS: ENOXAPARIN 30MG/0.3ML SYR SUBCUT SCH ×2 (09:56→21:13)
[2021-04-07] MEDS: AZITHROMYCIN 500 MG TABLET PO SCH (21:12)
[2021-04-07] MEDS: DILTIAZEM HCL 60MG TABLET PO SCH (21:13)
[2021-04-07] MEDS: CEFTRIAXONE 1,000 MG in DEXTROSE 5% WATER 50 ML IV SCH (23:46)
[2021-04-08] VITALS (12 sets, daily range): BP systolic 120–157; BP diastolic 66–94
[2021-04-08] MEDS: METHYLPREDNISOLONE SOD SUCC 125 MG/2 ML VIAL IV SCH ×3 (05:21→21:58)
[2021-04-08] MEDS: DILTIAZEM HCL 60MG TABLET PO SCH ×3 (05:21→21:58)
[2021-04-08 06:26] LABS: PLATELET ESTIMATE NORMAL
[2021-04-08 07:22] LABS: BASOPHILS % 0.2 % (0.0-2.0); HEMATOCRIT. 40.2 % (36.0-48.0); HEMOGLOBIN. 12.9 g/dL (12.0-16.0); LYMPHOCYTES % 8.4 % (20.0-50.0); MEAN CORPUSCULAR HEMOGLOBIN 27.2 pg (28.0-32.0); MEAN CORPUSCULAR VOLUME 84.6 fL (81.0-99.0); MEAN PLATELET VOLUME 8.5 fl (7.4-10.4); MONOCYTES % 2.2 % (2.0-8.0); NEUTROPHILS % 89.2 % (40.0-76.0); PLATELET 280 x1000/uL (130-400); RED BLOOD CELL COUNT 4.76 mill/uL (4.2-5.4); RED CELL DISTRIBUTION WIDTH 17.4 % (11.6-14.6)
[2021-04-08 07:39] LABS: CHLORIDE 100 mEq/L (98-107)
[2021-04-08] MEDS: ENOXAPARIN 30MG/0.3ML SYR SUBCUT SCH ×2 (09:00→21:00)
[2021-04-08] MEDS: FUROSEMIDE 40MG/4ML VIAL IVP SCH ×2 (09:13→16:40)
[2021-04-08] MEDS: CLONIDINE 0.1MG TABLET PO PRN (12:05)
[2021-04-08] MEDS ORDERED: EZ-HD SUSPENSION(BARIUM SULFATE 340GM) PO ONE (13:43)
[2021-04-08] MEDS ORDERED: BARIUM SULFATE 176 GM SUSP.RECON ONE (13:43)
[2021-04-08] MEDS ORDERED: SIMETHICONE/SOD BICARB/CIT AC 1 EACH GRAN.EF.PK ONE (13:44)
[2021-04-08] MEDS: PANTOPRAZOLE SODIUM 40 MG/VIAL IV SCH (21:57)
[2021-04-08] MEDS: AZITHROMYCIN 500 MG TABLET PO SCH (21:57)
[2021-04-08] MEDS: CEFTRIAXONE 1,000 MG in DEXTROSE 5% WATER 50 ML IV SCH (22:46)
[2021-04-09] VITALS (11 sets, daily range): BP systolic 116–159; BP diastolic 61–87
[2021-04-09] MEDS: METHYLPREDNISOLONE SOD SUCC 125 MG/2 ML VIAL IV SCH ×3 (05:52→21:50)
[2021-04-09] MEDS: DILTIAZEM HCL 60MG TABLET PO SCH ×3 (06:00→21:51)
[2021-04-09] MEDS: ENOXAPARIN 30MG/0.3ML SYR SUBCUT SCH ×2 (09:00→21:00)
[2021-04-09] MEDS: PANTOPRAZOLE SODIUM 40 MG/VIAL IV SCH ×2 (10:12→21:50)
[2021-04-09] MEDS: FUROSEMIDE 40MG/4ML VIAL IVP SCH ×2 (10:12→18:56)
[2021-04-09 12:55] LABS: CHLORIDE 98 mEq/L (98-107); HEMOGLOBIN. 13.9 g/dL (12.0-16.0); MEAN CORPUSCULAR HEMOGLOBIN 27.4 pg (28.0-32.0); MEAN CORPUSCULAR VOLUME 84.8 fL (81.0-99.0); MEAN PLATELET VOLUME 8.1 fl (7.4-10.4); PLATELET 261 x1000/uL (130-400); RED BLOOD CELL COUNT 5.07 mill/uL (4.2-5.4); RED CELL DISTRIBUTION WIDTH 16.8 % (11.6-14.6)
[2021-04-09 12:56] LABS: INR 1.1; PROTHROMBIN TIME 11.5 sec (9.6-11.0)
[2021-04-09 14:20] LABS: PLATELET ESTIMATE NORMAL
[2021-04-09] MEDS: CEFTRIAXONE 1,000 MG in DEXTROSE 5% WATER 50 ML IV SCH (22:55)
[2021-04-10] VITALS (11 sets, daily range): BP systolic 132–153; BP diastolic 76–93
[2021-04-10] MEDS: DILTIAZEM HCL 60MG TABLET PO SCH ×3 (06:00→21:24)
[2021-04-10] MEDS: METHYLPREDNISOLONE SOD SUCC 125 MG/2 ML VIAL IV SCH ×3 (06:43→21:17)
[2021-04-10 06:53] LABS: BASOPHILS % 0.1 % (0.0-2.0); HEMATOCRIT. 42.9 % (36.0-48.0); HEMOGLOBIN. 13.9 g/dL (12.0-16.0); LYMPHOCYTES % 8.7 % (20.0-50.0); MEAN CORPUSCULAR HEMOGLOBIN 27.5 pg (28.0-32.0); MEAN PLATELET VOLUME 8.1 fl (7.4-10.4); NEUTROPHILS % 88.2 % (40.0-76.0); PLATELET 249 x1000/uL (130-400); RED BLOOD CELL COUNT 5.04 mill/uL (4.2-5.4); RED CELL DISTRIBUTION WIDTH 17.3 % (11.6-14.6)
[2021-04-10 07:09] LABS: CHLORIDE 98 mEq/L (98-107)
[2021-04-10 07:20] LABS: INR 1.1; PROTHROMBIN TIME 11.8 sec (9.6-11.0)
[2021-04-10] MEDS: ENOXAPARIN 30MG/0.3ML SYR SUBCUT SCH ×2 (09:00→21:18)
[2021-04-10] MEDS: PANTOPRAZOLE SODIUM 40 MG/VIAL IV SCH ×2 (09:36→21:17)
[2021-04-10] MEDS: FUROSEMIDE 40MG/4ML VIAL IVP SCH ×2 (09:36→17:14)
[2021-04-10] MEDS ORDERED: LIDOCAINE HCL 1% 10 MG/ML 10ML VIAL ONE (11:23)
[2021-04-10] MEDS ORDERED: EPHEDRINE SULFATE 50MG/ML VIAL ONE (11:23)
[2021-04-10] MEDS ORDERED: ONDANSETRON HCL 4MG/2ML INJ ONE (11:23)
[2021-04-10] MEDS ORDERED: DEXAMETHASONE 4MG/ML 1ML VIAL ONE (11:23)
[2021-04-10] MEDS ORDERED: PROPOFOL 200MG/20ML VIAL IV ONE (11:24)
[2021-04-10] MEDS ORDERED: HYDROCORTISONE SOD SUCCINATE 100 MG/2 ML VIAL ONE (11:50)
[2021-04-10] MEDS: METOCLOPRAMIDE HCL 10MG/2ML VIAL IV SCH ×2 (13:11→17:14)
[2021-04-11] VITALS (12 sets, daily range): BP systolic 131–157; BP diastolic 72–93
[2021-04-11 06:18] LABS: HEMATOCRIT. 42.7 % (36.0-48.0); HEMOGLOBIN. 14.1 g/dL (12.0-16.0); MEAN CORPUSCULAR HEMOGLOBIN 27.9 pg (28.0-32.0); MEAN CORPUSCULAR VOLUME 84.5 fL (81.0-99.0); MEAN PLATELET VOLUME 8.2 fl (7.4-10.4); PLATELET 207 x1000/uL (130-400); RED BLOOD CELL COUNT 5.05 mill/uL (4.2-5.4); RED CELL DISTRIBUTION WIDTH 16.8 % (11.6-14.6)
[2021-04-11 06:40] LABS: CHLORIDE 93 mEq/L (98-107)
[2021-04-11] MEDS: METOCLOPRAMIDE HCL 10MG/2ML VIAL IV SCH ×3 (06:57→17:36)
[2021-04-11] MEDS: METHYLPREDNISOLONE SOD SUCC 125 MG/2 ML VIAL IV SCH ×3 (06:57→21:52)
[2021-04-11] MEDS: DILTIAZEM HCL 60MG TABLET PO SCH ×3 (06:58→21:53)
[2021-04-11] MEDS: FUROSEMIDE 40MG/4ML VIAL IVP SCH ×2 (08:42→17:36)
[2021-04-11] MEDS: PANTOPRAZOLE SODIUM 40 MG/VIAL IV SCH ×2 (08:42→21:52)
[2021-04-11] MEDS: ENOXAPARIN 30MG/0.3ML SYR SUBCUT SCH ×2 (08:43→21:53)
[2021-04-11 17:45] LABS: PLATELET ESTIMATE NORMAL
[2021-04-12] VITALS (13 sets, daily range): BP systolic 130–159; BP diastolic 72–98
[2021-04-12] MEDS: DILTIAZEM HCL 60MG TABLET PO SCH ×5 (06:18→20:40)
[2021-04-12] MEDS: METOCLOPRAMIDE HCL 10MG/2ML VIAL IV SCH ×3 (06:18→17:18)
[2021-04-12] MEDS: FUROSEMIDE 40MG/4ML VIAL IVP SCH ×2 (06:18→17:18)
[2021-04-12] MEDS: METHYLPREDNISOLONE SOD SUCC 125 MG/2 ML VIAL IV SCH ×3 (06:18→22:16)
[2021-04-12 07:50] LABS: HEMATOCRIT. 43.7 % (36.0-48.0); HEMOGLOBIN. 14.1 g/dL (12.0-16.0); MEAN CORPUSCULAR HEMOGLOBIN 27.3 pg (28.0-32.0); MEAN CORPUSCULAR VOLUME 84.4 fL (81.0-99.0); RED BLOOD CELL COUNT 5.18 mill/uL (4.2-5.4); RED CELL DISTRIBUTION WIDTH 16.8 % (11.6-14.6)
[2021-04-12 08:52] LABS: CHLORIDE 94 mEq/L (98-107)
[2021-04-12] MEDS: PANTOPRAZOLE SODIUM 40 MG/VIAL IV SCH ×2 (09:26→22:16)
[2021-04-12] MEDS: ENOXAPARIN 30MG/0.3ML SYR SUBCUT SCH ×2 (09:26→22:16)
[2021-04-12] MEDS ORDERED: BARIUM SULFATE 176 GM SUSP.RECON ONE (09:57)
[2021-04-12] MEDS: DEXT 5%/0.9% NACL 1,000 ML IV SCH (15:00)
[2021-04-13] VITALS (12 sets, daily range): BP systolic 127–149; BP diastolic 65–89
[2021-04-13] MEDS: DILTIAZEM HCL 60MG TABLET PO SCH ×3 (06:00→21:36)
[2021-04-13] MEDS: METHYLPREDNISOLONE SOD SUCC 125 MG/2 ML VIAL IV SCH ×3 (06:23→21:35)
[2021-04-13] MEDS: FUROSEMIDE 40MG/4ML VIAL IVP SCH ×2 (06:24→17:48)
[2021-04-13] MEDS: METOCLOPRAMIDE HCL 10MG/2ML VIAL IV SCH ×3 (06:24→16:50)
[2021-04-13] MEDS: DEXT 5%/0.9% NACL 1,000 ML IV SCH ×2 (06:24→18:29)
[2021-04-13] MEDS: PANTOPRAZOLE SODIUM 40 MG/VIAL IV SCH ×2 (08:39→21:36)
[2021-04-13] MEDS: ENOXAPARIN 30MG/0.3ML SYR SUBCUT SCH (08:39)
[2021-04-13 18:59] LABS: CHLORIDE 94 mEq/L (98-107)
[2021-04-13] MEDS ORDERED: KCL 20MEQ/100ML PREMIX 100 ML IV NR (20:00)
[2021-04-13] MEDS: ENOXAPARIN 40MG/0.4ML SYR SUBCUT SCH (21:35)
[2021-04-14] VITALS (10 sets, daily range): BP systolic 131–159; BP diastolic 76–102
[2021-04-14] MEDS: DILTIAZEM HCL 60MG TABLET PO SCH ×3 (05:08→21:21)
[2021-04-14] MEDS: METOCLOPRAMIDE HCL 10MG/2ML VIAL IV SCH ×3 (06:15→16:57)
[2021-04-14] MEDS: FUROSEMIDE 40MG/4ML VIAL IVP SCH ×2 (06:15→16:57)
[2021-04-14] MEDS: METHYLPREDNISOLONE SOD SUCC 125 MG/2 ML VIAL IV SCH ×3 (06:15→21:19)
[2021-04-14] MEDS: DEXT 5%/0.9% NACL 1,000 ML IV SCH ×2 (06:16→21:19)
[2021-04-14 06:36] LABS: HEMATOCRIT. 38.2 % (36.0-48.0); HEMOGLOBIN. 12.2 g/dL (12.0-16.0); MEAN CORPUSCULAR HEMOGLOBIN 27.1 pg (28.0-32.0); MEAN CORPUSCULAR VOLUME 84.5 fL (81.0-99.0); MEAN PLATELET VOLUME 8.9 fl (7.4-10.4); PLATELET 157 x1000/uL (130-400); RED BLOOD CELL COUNT 4.52 mill/uL (4.2-5.4); RED CELL DISTRIBUTION WIDTH 16.7 % (11.6-14.6)
[2021-04-14 06:41] LABS: CHLORIDE 97 mEq/L (98-107)
[2021-04-14 06:58] LABS: INR 1.1; PROTHROMBIN TIME 11.6 sec (9.6-11.0)
[2021-04-14] MEDS: ENOXAPARIN 40MG/0.4ML SYR SUBCUT SCH ×2 (09:00→21:20)
[2021-04-14] MEDS: PANTOPRAZOLE SODIUM 40 MG/VIAL IV SCH ×2 (09:42→21:19)
[2021-04-14] MEDS ORDERED: KCL 20MEQ/100ML PREMIX 100 ML IV NR (10:00)
[2021-04-14] MEDS ORDERED: PROPOFOL 200MG/20ML VIAL IV ONE ×2 (11:15→11:38)
[2021-04-14] MEDS ORDERED: DIPHENHYDRAMINE 50MG/ML VIAL ONE (11:15)
[2021-04-14] MEDS ORDERED: DEXAMETHASONE 4MG/ML 1ML VIAL ONE (11:16)
[2021-04-14] MEDS ORDERED: ONDANSETRON HCL 4MG/2ML INJ ONE (11:16)
[2021-04-14] MEDS ORDERED: KCL 20MEQ/100ML PREMIX 100 ML IV SCH (12:00)
[2021-04-14 19:21] LABS: PLATELET ESTIMATE NORMAL
[2021-04-15] VITALS (11 sets, daily range): BP systolic 123–154; BP diastolic 67–95
[2021-04-15] MEDS: METOCLOPRAMIDE HCL 10MG/2ML VIAL IV SCH ×2 (06:04→12:42)
[2021-04-15] MEDS: METHYLPREDNISOLONE SOD SUCC 125 MG/2 ML VIAL IV SCH ×3 (06:04→21:16)
[2021-04-15] MEDS: DILTIAZEM HCL 60MG TABLET PO SCH ×3 (06:06→21:16)
[2021-04-15 07:39] LABS: BASOPHILS % 0.1 % (0.0-2.0); HEMATOCRIT. 38.3 % (36.0-48.0); HEMOGLOBIN. 12.3 g/dL (12.0-16.0); LYMPHOCYTES % 7.5 % (20.0-50.0); MEAN CORPUSCULAR HEMOGLOBIN 26.9 pg (28.0-32.0); MEAN CORPUSCULAR VOLUME 83.9 fL (81.0-99.0); MEAN PLATELET VOLUME 9.4 fl (7.4-10.4); MONOCYTES % 3.2 % (2.0-8.0); NEUTROPHILS % 89.2 % (40.0-76.0); PLATELET 152 x1000/uL (130-400); RED BLOOD CELL COUNT 4.56 mill/uL (4.2-5.4); RED CELL DISTRIBUTION WIDTH 16.5 % (11.6-14.6)
[2021-04-15 07:44] LABS: CHLORIDE 96 mEq/L (98-107)
[2021-04-15] MEDS ORDERED: EZ-HD SUSPENSION(BARIUM SULFATE 340GM) PO ONE (07:57)
[2021-04-15] MEDS ORDERED: BARIUM SULFATE 176 GM SUSP.RECON ONE (07:58)
[2021-04-15] MEDS ORDERED: SIMETHICONE/SOD BICARB/CIT AC 1 EACH GRAN.EF.PK ONE (08:00)
[2021-04-15] MEDS: ENOXAPARIN 40MG/0.4ML SYR SUBCUT SCH ×2 (10:06→21:16)
[2021-04-15] MEDS: PANTOPRAZOLE SODIUM 40 MG/VIAL IV SCH ×2 (10:06→21:15)
[2021-04-15] MEDS: FUROSEMIDE 40MG/4ML VIAL IVP SCH (10:06)
[2021-04-15] MEDS: DEXT 5%/0.9% NACL 1,000 ML IV SCH (10:07)
[2021-04-15] MEDS ORDERED: INFLUENZA VACCINE 05/PF 0.5 ML SYRINGE IM ONE (19:30)
[2021-04-16] VITALS (12 sets, daily range): BP systolic 116–175; BP diastolic 58–106
[2021-04-16] MEDS ORDERED: POTASSIUM CHLORIDE INJ 40 MEQ in DEXT 5% WATER 250 ML IV ONE ×2
[2021-04-16] MEDS: KCL 20MEQ/100ML X 2 FOR TOTAL KCL 40MEQ/200ML IV SCH ×2 (01:21→03:34)
[2021-04-16] MEDS: DEXT 5%/0.9% NACL 1,000 ML IV SCH ×2 (01:21→11:21)
[2021-04-16] MEDS: METHYLPREDNISOLONE SOD SUCC 125 MG/2 ML VIAL IV SCH ×3 (06:19→21:39)
[2021-04-16] MEDS: DILTIAZEM HCL 60MG TABLET PO SCH ×3 (06:20→21:40)
[2021-04-16] MEDS: METOCLOPRAMIDE HCL 10MG/2ML VIAL IV SCH ×3 (06:20→17:15)
[2021-04-16 07:09] LABS: BASOPHILS % 0.1 % (0.0-2.0); HEMATOCRIT. 37.5 % (36.0-48.0); HEMOGLOBIN. 12.7 g/dL (12.0-16.0); LYMPHOCYTES % 7.7 % (20.0-50.0); MEAN CORPUSCULAR HEMOGLOBIN 27.8 pg (28.0-32.0); MEAN CORPUSCULAR VOLUME 81.9 fL (81.0-99.0); MEAN PLATELET VOLUME 9.1 fl (7.4-10.4); MONOCYTES % 2.8 % (2.0-8.0); NEUTROPHILS % 89.4 % (40.0-76.0); PLATELET 146 x1000/uL (130-400); RED BLOOD CELL COUNT 4.58 mill/uL (4.2-5.4); RED CELL DISTRIBUTION WIDTH 16.5 % (11.6-14.6)
[2021-04-16 07:37] LABS: CHLORIDE 91 mEq/L (98-107)
[2021-04-16] MEDS: PANTOPRAZOLE SODIUM 40 MG/VIAL IV SCH ×2 (08:24→21:39)
[2021-04-16] MEDS: ENOXAPARIN 40MG/0.4ML SYR SUBCUT SCH ×2 (08:24→21:40)
[2021-04-16] MEDS: FUROSEMIDE 40MG/4ML VIAL IVP SCH ×2 (08:24→17:15)
[2021-04-16] MEDS: CLONIDINE 0.1MG TABLET PO PRN (11:20)
[2021-04-16] MEDS ORDERED: INFLUENZA VACCINE 05/PF 0.5 ML SYRINGE IM ONE (17:30)
[2021-04-17] VITALS (11 sets, daily range): BP systolic 116–156; BP diastolic 68–89
[2021-04-17] MEDS: DEXT 5%/0.9% NACL 1,000 ML IV SCH ×2 (02:13→14:22)
[2021-04-17] MEDS: METHYLPREDNISOLONE SOD SUCC 125 MG/2 ML VIAL IV SCH ×2 (05:51→14:22)
[2021-04-17] MEDS: METOCLOPRAMIDE HCL 10MG/2ML VIAL IV SCH ×3 (05:51→18:15)
[2021-04-17] MEDS: DILTIAZEM HCL 60MG TABLET PO SCH ×3 (05:59→21:52)
[2021-04-17] MEDS: PANTOPRAZOLE SODIUM 40 MG/VIAL IV SCH ×2 (08:36→21:51)
[2021-04-17] MEDS: FUROSEMIDE 40MG/4ML VIAL IVP SCH ×2 (08:36→18:15)
[2021-04-17] MEDS: ENOXAPARIN 40MG/0.4ML SYR SUBCUT SCH ×2 (08:36→21:51)
[2021-04-17 12:42] LABS: AMYLASE 37 IU/L (25-115)
[2021-04-17] MEDS: GUAIFENESIN 200MG/10ML SUGAR FREE UDC PO PRN ×2 (13:03→21:51)
[2021-04-17 14:58] LABS: HEPATITIS B SURFACE ANTIGEN NEGATIVE
[2021-04-18] VITALS (12 sets, daily range): BP systolic 110–144; BP diastolic 64–83
[2021-04-18] MEDS: DEXT 5%/0.9% NACL 1,000 ML IV SCH ×2 (04:43→17:03)
[2021-04-18] MEDS: DILTIAZEM HCL 60MG TABLET PO SCH ×3 (06:23→21:32)
[2021-04-18] MEDS: METOCLOPRAMIDE HCL 10MG/2ML VIAL IV SCH ×3 (06:23→17:06)
[2021-04-18] MEDS: GUAIFENESIN 200MG/10ML SUGAR FREE UDC PO PRN (06:23)
[2021-04-18] MEDS: FUROSEMIDE 40MG/4ML VIAL IVP SCH ×2 (07:14→17:06)
[2021-04-18] MEDS: PANTOPRAZOLE SODIUM 40 MG/VIAL IV SCH ×2 (09:37→21:29)
[2021-04-18] MEDS: ENOXAPARIN 40MG/0.4ML SYR SUBCUT SCH ×2 (09:37→21:30)
[2021-04-18] MEDS ORDERED: METHYLPREDNISOLONE SOD SUCC 125 MG/2 ML VIAL IV SCH (14:00)
[2021-04-19] VITALS (8 sets, daily range): BP systolic 123–145; BP diastolic 69–79
[2021-04-19] MEDS: DEXT 5%/0.9% NACL 1,000 ML IV SCH (06:30)
[2021-04-19] MEDS: METOCLOPRAMIDE HCL 10MG/2ML VIAL IV SCH ×2 (06:35→11:50)
[2021-04-19] MEDS: DILTIAZEM HCL 60MG TABLET PO SCH ×2 (06:36→13:44)
[2021-04-19] MEDS: FUROSEMIDE 40MG/4ML VIAL IVP SCH (07:47)
[2021-04-19] MEDS: ENOXAPARIN 40MG/0.4ML SYR SUBCUT SCH (07:48)
[2021-04-19] MEDS: PANTOPRAZOLE SODIUM 40 MG/VIAL IV SCH (07:48)
[2021-04-19 08:26] LABS: HEMATOCRIT 41.2 % (36.0-48.0); HEMOGLOBIN 13.1 g/dL (12.0-16.0); MEAN CORPUSCULAR HEMOGLOBIN 26.3 pg (28.0-32.0); MEAN CORPUSCULAR VOLUME 83.1 fL (81.0-99.0); PLATELET 153 x1000/uL (130-400); RED BLOOD CELL COUNT 4.96 mill/uL (4.2-5.4); RED CELL DISTRIBUTION WIDTH 16.8 % (11.6-14.6)
[2021-04-19] MEDS ORDERED: METHYLPREDNISOLONE SOD SUCC 40 MG/ML VIAL IV SCH (09:00)
[2021-04-19] MEDS ORDERED: DILT60TA35 PO (10:51)
[2021-04-19] MEDS ORDERED: PRED10TA23 MT (10:51)
[2021-04-19] MEDS ORDERED: ENOXAPARIN 30MG/0.3ML SYR SUBCUT SCH (21:00)
== END 2021-04-19 14:24 | disposition home or self-care (01) | DRG 720 ==
LOC: ER 15:49 → MICUSO 21:49 → 6WST 04-05 23:29 → 3WST 04-06 17:28
PROVIDERS: ADMIT Internal Medicine; ATTEND Internal Medicine
PROC: 02HV33Z Insertion of Infusion Device into Superior Vena Cava, Percutaneous Approach (ICD-10-PCS; 2021-04-06)
PROC: B548ZZA Ultrasonography of Superior Vena Cava, Guidance (ICD-10-PCS; 2021-04-06)
PROC: 5A09557 Assistance with Respiratory Ventilation, Greater than 96 Consecutive Hours, Continuous Positive Airway Pressure (ICD-10-PCS; 2021-04-06)
PROC: 0DB78ZX Excision of Stomach, Pylorus, Via Natural or Artificial Opening Endoscopic, Diagnostic (ICD-10-PCS; principal; 2021-04-10)
PROC: 0D738ZZ Dilation of Lower Esophagus, Via Natural or Artificial Opening Endoscopic (ICD-10-PCS; 2021-04-14)
PROC: BD11ZZZ Fluoroscopy of Esophagus (ICD-10-PCS; 2021-04-15)
DX: A41.9 Sepsis, unspecified organism (principal); J96.01 Acute respiratory failure with hypoxia; J18.9 Pneumonia, unspecified organism; E46 Unspecified protein-calorie malnutrition; I11.0 Hypertensive heart disease with heart failure; K22.0 Achalasia of cardia; I48.92 Unspecified atrial flutter; E66.2 Morbid (severe) obesity with alveolar hypoventilation; J44.0 Chronic obstructive pulmonary disease with (acute) lower respiratory infection; I50.32 Chronic diastolic (congestive) heart failure; I48.91 Unspecified atrial fibrillation; E78.00 Pure hypercholesterolemia, unspecified; E78.5 Hyperlipidemia, unspecified; Z20.822 Contact with and (suspected) exposure to COVID-19; K21.9 Gastro-esophageal reflux disease without esophagitis; R13.13 Dysphagia, pharyngeal phase; K29.30 Chronic superficial gastritis without bleeding; Z68.42 Body mass index [BMI] 45.0-49.9, adult; Z87.891 Personal history of nicotine dependence; Z88.6 Allergy status to analgesic agent; Z88.5 Allergy status to narcotic agent; Z88.8 Allergy status to other drugs, medicaments and biological substances; Z79.899 Other long term (current) drug therapy; Z79.84 Long term (current) use of oral hypoglycemic drugs
CPT/HCPCS: 36415; 36600; 71045; 74220; 76700; 76937; 80048; 80053; 80076; 82150; 82375; 82550; 82553; 82805; 82962; 83735; 83880; 84145; 84443; 84484; 85025; 85027; 86705; 86709; 86803; 87340; 87426; 88305; 88312; 88313; 90686; 92611; 92950; 93005; 93306; 94640; 94660; 97162; 97535; 99285; C1725; C9113; J0456; J0696; J1100; J1160; J1200; J1650; J1720; J1940; J2405; J2704; J2765; J2920; J2930; J3480; J3490; J7042; J7060; J7517

== ENCOUNTER 2021-10-18 08:43 | Inpatient (IN) | payer MEDICAID ==
[~2021-10-18] VITALS: Ht 157.5 cm; Wt 119.3 kg
[~2021-10-18 08:43] MED LIST changes: +DILT60TA35 PO; +POTA-205 MT; -POTA20TA82 MT; +PRED10TA23 MT
[2021-10-18] MEDS ORDERED: IPRATROPIUM BROMIDE (0.02%) 0.5MG/2.5ML NEB HHN STA (09:07)
[2021-10-18] MEDS ORDERED: ALBUTEROL (0.083%) 2.5MG/3ML NEB HHN STA (09:07)
[2021-10-18 09:43] LABS: BASOPHILS % 0.3 % (0.0-2.0); EOSINOPHILS % 2.5 % (0.0-5.0); HEMATOCRIT. 33.3 % (36.0-48.0); HEMOGLOBIN. 10.7 g/dL (12.0-16.0); LYMPHOCYTES % 24.6 % (20.0-50.0); MEAN CORPUSCULAR HEMOGLOBIN 26.6 pg (28.0-32.0); MEAN CORPUSCULAR VOLUME 82.8 fL (81.0-99.0); MEAN PLATELET VOLUME 7.5 fl (7.4-10.4); MONOCYTES % 8.3 % (2.0-8.0); NEUTROPHILS % 64.3 % (40.0-76.0); PLATELET 293 x1000/uL (130-400); RED BLOOD CELL COUNT 4.03 mill/uL (4.2-5.4); RED CELL DISTRIBUTION WIDTH 16.6 % (11.6-14.6)
[2021-10-18 09:51] LABS: CHLORIDE 106 mEq/L (98-107)
[2021-10-18] MEDS ORDERED: BARIUM SULFATE 176 GM SUSP.RECON ONE (13:20)
[2021-10-18] MEDS ORDERED: MAGNESIUM/ALUMINUM HYDROXIDE/SIMETHICONE 30ML UDC PO PRN (14:15)
[2021-10-18] MEDS ORDERED: DIPHENHYDRAMINE 50MG/ML VIAL IV PRN (14:15)
[2021-10-18] MEDS ORDERED: DEXTROSE 50% WATER 50ML SYRINGE IV PRN (14:15)
[2021-10-18] MEDS ORDERED: DOCUSATE SODIUM 100MG CAPSULE PO PRN (14:15)
[2021-10-18] MEDS ORDERED: ACETAMINOPHEN 325MG TABLET PO PRN (14:15)
[2021-10-18] MEDS ORDERED: HYDRALAZINE 20MG/ML VIAL IV PRN (14:15)
[2021-10-18] MEDS ORDERED: CLONIDINE 0.1MG TABLET PO PRN (14:15)
[2021-10-18] MEDS ORDERED: IPRATROPIUM/ALBUTEROL 0.5-3(2.5)MG/3ML NEB HHN PRN (14:15)
[2021-10-18] MEDS ORDERED: ONDANSETRON HCL 4MG/2ML INJ IV PRN (14:15)
[2021-10-18] MEDS ORDERED: DEXT 5%/0.45% NACL 1000ML 1,000 ML IV SCH (14:15)
[2021-10-18] MEDS ORDERED: GUAIFENESIN 200MG/10ML SUGAR FREE UDC PO PRN (14:15)
[2021-10-18] MEDS ORDERED: ENOXAPARIN 30MG/0.3ML SYR SUBCUT SCH (15:00)
[2021-10-18] MEDS: ENOXAPARIN 30MG/0.3ML SYR SUBCUT SCH (15:27)
[2021-10-18] MEDS: BLOOD SUGAR DIAGNOSTIC STRIP TEST SCH ×2 (17:18→21:00)
[2021-10-18] MEDS: INSULIN LISPRO 100 UNITS/ML SUBCUT SCH ×2 (19:56→21:00)
[2021-10-18] MEDS: SODIUM CHLORIDE 0.9% INJ 3ML FLUSH IVF SCH (22:00)
[2021-10-19 06:09] LABS: BASOPHILS % 1.1 % (0.0-2.0); EOSINOPHILS % 2.2 % (0.0-5.0); HEMOGLOBIN. 10.8 g/dL (12.0-16.0); LYMPHOCYTES % 19.2 % (20.0-50.0); MEAN CORPUSCULAR HEMOGLOBIN 26.8 pg (28.0-32.0); MEAN CORPUSCULAR VOLUME 81.5 fL (81.0-99.0); MEAN PLATELET VOLUME 7.5 fl (7.4-10.4); MONOCYTES % 8.4 % (2.0-8.0); NEUTROPHILS % 69.1 % (40.0-76.0); PLATELET 285 x1000/uL (130-400); RED BLOOD CELL COUNT 4.05 mill/uL (4.2-5.4); RED CELL DISTRIBUTION WIDTH 16.8 % (11.6-14.6)
[2021-10-19 06:15] VITALS: BP 123/75
[2021-10-19 06:15] LABS: CHLORIDE 106 mEq/L (98-107)
[2021-10-19] MEDS: BLOOD SUGAR DIAGNOSTIC STRIP TEST SCH ×4 (07:20→21:11)
[2021-10-19] MEDS: INSULIN LISPRO 100 UNITS/ML SUBCUT SCH ×4 (07:50→21:00)
[2021-10-19 08:03] VITALS: BP 112/51
[2021-10-19 08:45] VITALS: BP 112/51
[2021-10-19 12:01] VITALS: BP 153/90
[2021-10-19] MEDS: DEXTROSE 5% WATER 1,000 ML IV SCH (13:25)
[2021-10-19] MEDS: SODIUM CHLORIDE 0.9% INJ 3ML FLUSH IVF SCH ×3 (13:25→21:36)
[2021-10-19 14:30] LABS: BG BASE EXCESS 0.6 mmol/L (-2.0-2.0); BG CARBOXYHEMOGLOBIN 0.1 % (0.5-1.5); BG DEOXYHEMOGLOBIN 3.5 % (0.0-5.0); BG FRACTION INSPIRED OXYGEN 30; BG HCO3 ACT 26.7 mmol/L (22.0-26.0); BG METHEMOGLOBIN 0.4 % (0.0-1.5); BG OXYGEN SATURATION 96.5 % (92.0-98.5); BG PCO2 48.9 mmHg (35.0-45.0); BG PH 7.355 (7.350-7.450); BG SAMPLE SITE RIGHT RADIAL; BG TOTAL HEMOGLOBIN 12.5 g/dL (12.0-18.0); BG VENT MODE NASAL CANNULA
[2021-10-19 16:20] VITALS: BP 134/69
[2021-10-19] MEDS: ENOXAPARIN 30MG/0.3ML SYR SUBCUT SCH (17:03)
[2021-10-19] MEDS: IPRATROPIUM/ALBUTEROL 0.5-3(2.5)MG/3ML NEB HHN SCH (19:44)
[2021-10-19] MEDS: BUDESONIDE 0.5MG/2ML NEB HHN SCH (19:44)
[2021-10-19 20:00] VITALS: BP 123/75
[2021-10-19] MEDS: PANTOPRAZOLE SODIUM 40 MG/VIAL IV SCH (20:55)
[2021-10-20] VITALS: BP 109/66
[2021-10-20 03:04] LABS: BASOPHILS % 0.7 % (0.0-2.0); EOSINOPHILS % 2.6 % (0.0-5.0); HEMATOCRIT. 33.3 % (36.0-48.0); HEMOGLOBIN. 10.9 g/dL (12.0-16.0); LYMPHOCYTES % 23.5 % (20.0-50.0); MEAN CORPUSCULAR HEMOGLOBIN 26.5 pg (28.0-32.0); MEAN CORPUSCULAR VOLUME 81.4 fL (81.0-99.0); MEAN PLATELET VOLUME 7.3 fl (7.4-10.4); MONOCYTES % 8.5 % (2.0-8.0); NEUTROPHILS % 64.7 % (40.0-76.0); PLATELET 291 x1000/uL (130-400); RED BLOOD CELL COUNT 4.09 mill/uL (4.2-5.4); RED CELL DISTRIBUTION WIDTH 16.7 % (11.6-14.6)
[2021-10-20 03:12] LABS: CHLORIDE 105 mEq/L (98-107)
[2021-10-20] MEDS: IPRATROPIUM/ALBUTEROL 0.5-3(2.5)MG/3ML NEB HHN SCH ×4 (03:52→20:32)
[2021-10-20 04:00] VITALS: BP 104/60
[2021-10-20] MEDS: SODIUM CHLORIDE 0.9% INJ 3ML FLUSH IVF SCH ×3 (05:55→22:00)
[2021-10-20] MEDS: ENOXAPARIN 30MG/0.3ML SYR SUBCUT SCH ×2 (05:56→17:36)
[2021-10-20] MEDS: BLOOD SUGAR DIAGNOSTIC STRIP TEST SCH ×4 (06:25→21:00)
[2021-10-20] MEDS: INSULIN LISPRO 100 UNITS/ML SUBCUT SCH ×4 (07:50→21:00)
[2021-10-20 08:01] VITALS: BP 98/37
[2021-10-20] MEDS: BUDESONIDE 0.5MG/2ML NEB HHN SCH ×2 (08:57→20:32)
[2021-10-20] MEDS: PANTOPRAZOLE SODIUM 40 MG/VIAL IV SCH ×2 (09:10→21:00)
[2021-10-20] MEDS: DEXTROSE 5% WATER 1,000 ML IV SCH (09:10)
[2021-10-20] MEDS ORDERED: LIDOCAINE HCL 1% 10 MG/ML 10ML VIAL ONE (11:28)
[2021-10-20] MEDS ORDERED: DEXAMETHASONE 4MG/ML 1ML VIAL ONE (11:29)
[2021-10-20] MEDS ORDERED: PROPOFOL 200MG/20ML VIAL IV ONE (11:29)
[2021-10-20] MEDS ORDERED: ONDANSETRON HCL 4MG/2ML INJ ONE (11:29)
[2021-10-20] MEDS ORDERED: LIDOCAINE HCL 2% JELLY 5ML ONE (11:32)
[2021-10-20] MEDS ORDERED: MIDAZOLAM HCL 2 MG/2 ML VIAL ONE (11:41)
[2021-10-20 11:45] VITALS: BP 113/61
[2021-10-20 16:30] VITALS: BP 100/61
[2021-10-20 20:00] VITALS: BP 105/67
[2021-10-21] VITALS: BP 100/47
[2021-10-21] MEDS: IPRATROPIUM/ALBUTEROL 0.5-3(2.5)MG/3ML NEB HHN SCH ×3 (00:51→14:09)
[2021-10-21 04:03] VITALS: BP 99/46
[2021-10-21] MEDS: DEXTROSE 5% WATER 1,000 ML IV SCH (04:15)
[2021-10-21] MEDS: SODIUM CHLORIDE 0.9% INJ 3ML FLUSH IVF SCH ×2 (05:20→14:00)
[2021-10-21] MEDS: ENOXAPARIN 30MG/0.3ML SYR SUBCUT SCH ×2 (05:50→18:46)
[2021-10-21] MEDS: BLOOD SUGAR DIAGNOSTIC STRIP TEST SCH (05:52)
[2021-10-21] MEDS: INSULIN LISPRO 100 UNITS/ML SUBCUT SCH ×3 (07:50→17:20)
[2021-10-21 08:16] VITALS: BP 103/93
[2021-10-21] MEDS: BUDESONIDE 0.5MG/2ML NEB HHN SCH (09:08)
[2021-10-21] MEDS ORDERED: LIDOCAINE HCL 1% 10 MG/ML 10ML VIAL ONE (10:50)
[2021-10-21 12:00] VITALS: BP 117/75
[2021-10-21] MEDS: PANTOPRAZOLE SODIUM 40 MG/VIAL IV SCH (13:03)
[2021-10-21 16:00] VITALS: BP 122/68
[2021-10-21] MEDS ORDERED: BLOOD SUGAR DIAGNOSTIC STRIP TEST SCH (16:15)
[2021-10-21 19:01] VITALS: BP 122/68
== END 2021-10-21 21:00 | disposition home or self-care (01) | DRG 243 ==
LOC: ER 08:43 → MICUSO 13:07 → 6WST 10-19 05:16
PROVIDERS: ADMIT Internal Medicine; ATTEND Internal Medicine
PROC: 5A09457 Assistance with Respiratory Ventilation, 24-96 Consecutive Hours, Continuous Positive Airway Pressure (ICD-10-PCS; 2021-10-19)
PROC: 0D738ZZ Dilation of Lower Esophagus, Via Natural or Artificial Opening Endoscopic (ICD-10-PCS; principal; 2021-10-20)
PROC: 02HV33Z Insertion of Infusion Device into Superior Vena Cava, Percutaneous Approach (ICD-10-PCS; 2021-10-21)
PROC: B548ZZA Ultrasonography of Superior Vena Cava, Guidance (ICD-10-PCS; 2021-10-21)
PROC: B5181ZA Fluoroscopy of Superior Vena Cava using Low Osmolar Contrast, Guidance (ICD-10-PCS; 2021-10-21)
DX: K22.0 Achalasia of cardia (principal); J96.10 Chronic respiratory failure, unspecified whether with hypoxia or hypercapnia; E46 Unspecified protein-calorie malnutrition; I50.9 Heart failure, unspecified; D64.9 Anemia, unspecified; E11.9 Type 2 diabetes mellitus without complications; E66.9 Obesity, unspecified; I11.0 Hypertensive heart disease with heart failure; Z99.81 Dependence on supplemental oxygen; G47.33 Obstructive sleep apnea (adult) (pediatric); K22.89 Other specified disease of esophagus; E78.5 Hyperlipidemia, unspecified; Z20.822 Contact with and (suspected) exposure to COVID-19; E78.00 Pure hypercholesterolemia, unspecified; K21.9 Gastro-esophageal reflux disease without esophagitis; J44.9 Chronic obstructive pulmonary disease, unspecified; K29.30 Chronic superficial gastritis without bleeding; Z87.891 Personal history of nicotine dependence; Z79.51 Long term (current) use of inhaled steroids; Z79.899 Other long term (current) drug therapy; Z88.6 Allergy status to analgesic agent; Z88.8 Allergy status to other drugs, medicaments and biological substances; Z98.891 History of uterine scar from previous surgery; Z68.42 Body mass index [BMI] 45.0-49.9, adult
CPT/HCPCS: 36415; 36573; 36600; 71045; 74220; 80048; 80053; 82375; 82805; 82962; 84484; 85025; 87426; 93005; 94003; 94640; 94644; 94660; 99285; C1725; C1769; C9113; J1100; J1650; J2250; J2405; J2704; J3490; J7070; J7626

== ENCOUNTER 2023-08-16 21:18 | Emergency (ER) | payer OTHER ==
[~2023-08-16] VITALS: Ht 172.7 cm; Wt 123.0 kg
[~2023-08-16 21:18] MED LIST changes: -ALBU90AE INH; +ATROV IH; +BENZ100C86 MT; -CARV3.1242 PO; -DILT60TA35 PO; +EMPA10TA PO; +FEXO-270 PO; -FLUT1DIS3 IH; -IBUP-2030 PO; -LISI-186 MT; -LORA10TA7 MT; +MONT-46 PO; -MONT10TA21 PO; +VITA400T9 PO
[2023-08-16 22:27] VITALS: PULSE 108; RESP 22; O2SAT 98
[2023-08-16] MEDS: IPRATROPIUM BROMIDE (0.02%) 0.5MG/2.5ML NEB HHN STA (22:27)
[2023-08-16] MEDS: ALBUTEROL (0.083%) 2.5MG/3ML NEB HHN SCH (22:27)
[2023-08-16 22:42] LABS: BG BASE EXCESS 3.1 mmol/L (-2.0-2.0); BG CARBOXYHEMOGLOBIN 0.5 % (0.5-1.5); BG FRACTION INSPIRED OXYGEN 28; BG HCO3 ACT 28.7 mmol/L (22.0-26.0); BG METHEMOGLOBIN 0.1 % (0.0-1.5); BG OXYHEMOGLOBIN 93.4 % (94.0-97.0); BG PCO2 47.6 mmHg (35.0-45.0); BG PH 7.398 (7.350-7.450); BG PO2 69.5 mmHg (75.0-100.0); BG SAMPLE SITE LEFT RADIAL; BG TOTAL HEMOGLOBIN 13.7 g/dL (12.0-18.0); BG VENT MODE NASAL CANNULA
[2023-08-16] MEDS: METHYLPREDNISOLONE SOD SUCC 125MG/2ML (ACT-O-VIAL) IV STA (22:53)
[2023-08-16 22:55] VITALS: PULSE 113; RESP 20; O2SAT 99
[2023-08-16] MEDS: MAGNESIUM 2 G PREMIX 50 ML IV ONE (22:55)
[2023-08-16 23:03] LABS: BASOPHILS % 0.3 % (0.0-2.0); HEMATOCRIT. 40.5 % (36.0-48.0); HEMOGLOBIN. 13.2 g/dL (12.0-16.0); LYMPHOCYTES % 8.1 % (20.0-50.0); MEAN CORPUSCULAR HEMOGLOBIN 28.8 pg (28.0-32.0); MEAN CORPUSCULAR HGB CONC 32.5 g/dL (31.0-37.0); MEAN CORPUSCULAR VOLUME 88.8 fL (81.0-99.0); MEAN PLATELET VOLUME 7.9 fl (7.4-10.4); MONOCYTES % 5.4 % (2.0-8.0); NEUTROPHILS % 86.2 % (40.0-76.0); PLATELET 326 x1000/uL (130-400); RED BLOOD CELL COUNT 4.56 mill/uL (4.2-5.4); RED CELL DISTRIBUTION WIDTH 15.8 % (11.6-14.6); WHITE BLOOD COUNT 23.3 x1000/uL (4.5-11.0)
[2023-08-16 23:10] LABS: CALCIUM 9.8 mg/dL (8.7-10.4); CARBON DIOXIDE 27 mEq/L (21-32)
[2023-08-16 23:11] LABS: CHLORIDE 104 mEq/L (98-107); POTASSIUM 3.6 mEq/L (3.5-5.1); SODIUM 139 mEq/L (136-145)
[2023-08-16 23:15] LABS: GLUCOSE 109 mg/dL (70-105); UREA NITROGEN BLOOD 8 mg/dL (9-23)
[2023-08-16 23:17] LABS: TROPONIN I HIGH SENSITIVITY < 4 ng/L (3.0-34)
[2023-08-16 23:27] VITALS: PULSE 119; RESP 20; O2SAT 99
[2023-08-17 01:12] VITALS: BP 153/86; PULSE 118; RESP 24; TEMP 98.6
== END 2023-08-17 01:30 | disposition short-term general hospital (02) ==
LOC: ER 21:18
DX: J44.1 Chronic obstructive pulmonary disease with (acute) exacerbation (principal); I11.0 Hypertensive heart disease with heart failure; I50.9 Heart failure, unspecified; E66.01 Morbid (severe) obesity due to excess calories; Z68.41 Body mass index [BMI] 40.0-44.9, adult; Z88.5 Allergy status to narcotic agent; Z88.6 Allergy status to analgesic agent; Z98.890 Other specified postprocedural states; Z87.891 Personal history of nicotine dependence
CPT/HCPCS: 80048; 83880; 85025; 84484; 36415; 71045; 94640; 82805; 82375; 96365; 96375; 99291; 36600; J3475; J2930; Z7610 ×3

== ENCOUNTER 2023-10-23 22:20 | Emergency (ER) | payer OTHER ==
[~2023-10-23] VITALS: Ht 157.5 cm; Wt 122.0 kg
[2023-10-23 23:05] VITALS: O2SAT 99
[2023-10-23] MEDS ORDERED: FUROSEMIDE 40MG/4ML VIAL IV ONE (23:45)
[2023-10-24 00:01] LABS: BASOPHILS % 0.2 % (0.0-2.0); EOSINOPHILS % 0.4 % (0.0-5.0); HEMATOCRIT. 40.5 % (36.0-48.0); HEMOGLOBIN. 13.2 g/dL (12.0-16.0); MEAN CORPUSCULAR HEMOGLOBIN 28.3 pg (28.0-32.0); MEAN CORPUSCULAR HGB CONC 32.5 g/dL (31.0-37.0); MEAN CORPUSCULAR VOLUME 87.1 fL (81.0-99.0); MEAN PLATELET VOLUME 7.9 fl (7.4-10.4); MONOCYTES % 5.5 % (2.0-8.0); NEUTROPHILS % 73.9 % (40.0-76.0); PLATELET 296 x1000/uL (130-400); RED BLOOD CELL COUNT 4.65 mill/uL (4.2-5.4); RED CELL DISTRIBUTION WIDTH 16.9 % (11.6-14.6); WHITE BLOOD COUNT 11.7 x1000/uL (4.5-11.0)
[2023-10-24 00:14] LABS: CARBON DIOXIDE 28 mEq/L (21-32); CHLORIDE 104 mEq/L (98-107); SODIUM 138 mEq/L (136-145)
[2023-10-24 00:15] LABS: CALCIUM 9.9 mg/dL (8.7-10.4)
[2023-10-24 00:20] LABS: CREATININE 0.9 mg/dL (0.6-1.0); GLUCOSE 92 mg/dL (70-105); UREA NITROGEN BLOOD 16 mg/dL (9-23)
[2023-10-24 00:40] LABS: TROPONIN I HIGH SENSITIVITY < 4 ng/L (3.0-34)
[2023-10-24] MEDS ORDERED: FUROSEMIDE 40MG/4ML VIAL IV NR (01:15)
[2023-10-24 02:19] LABS: TROPONIN I HIGH SENSITIVITY < 4 ng/L (3.0-34)
[2023-10-24] MEDS: FUROSEMIDE 20MG TABLET PO STA (02:44)
[2023-10-24 03:36] VITALS: BP 146/79; PULSE 59; RESP 20; TEMP 98.3
== END 2023-10-24 03:38 | disposition home or self-care (01) ==
LOC: ER 22:20
DX: R05.9 Cough, unspecified (principal); J02.9 Acute pharyngitis, unspecified; J44.9 Chronic obstructive pulmonary disease, unspecified; Z79.899 Other long term (current) drug therapy; Z98.890 Other specified postprocedural states; Z20.822 Contact with and (suspected) exposure to COVID-19
CPT/HCPCS: 36415; 71045; 80048; 82803; 83880; 84484; 85025; 87426; 87804; 93005; 99285; J1940

== ENCOUNTER 2024-08-18 22:09 | Emergency (ER) | payer MEDICAID, OTHER ==
[~2024-08-18] VITALS: Ht 157.5 cm; Wt 121.4 kg
[~2024-08-18 22:09] MED LIST changes: +AZEL137S10 BOTHNSTRLS; -AZEL137S7 BOTHNSTRLS
[2024-08-18 22:16] VITALS: O2SAT 97
[2024-08-19 00:24] LABS: CARBON DIOXIDE 30 mEq/L (21-32); CHLORIDE 101 mEq/L (98-107); POTASSIUM 3.9 mEq/L (3.5-5.1); SODIUM 138 mEq/L (136-145)
[2024-08-19 00:25] LABS: CALCIUM 9.6 mg/dL (8.7-10.4)
[2024-08-19 00:26] LABS: BASOPHILS % 0.9 % (0.0-2.0); EOSINOPHILS % 1.6 % (0.0-5.0); HEMOGLOBIN. 12.7 g/dL (12.0-16.0); LYMPHOCYTES % 23.9 % (20.0-50.0); MEAN CORPUSCULAR HEMOGLOBIN 26.9 pg (28.0-32.0); MEAN CORPUSCULAR HGB CONC 31.8 g/dL (31.0-37.0); MEAN CORPUSCULAR VOLUME 84.5 fL (81.0-99.0); MEAN PLATELET VOLUME 8.3 fl (7.4-10.4); MONOCYTES % 8.4 % (2.0-8.0); NEUTROPHILS % 65.2 % (40.0-76.0); PLATELET 291 x1000/uL (130-400); RED BLOOD CELL COUNT 4.73 mill/uL (4.2-5.4); RED CELL DISTRIBUTION WIDTH 17.2 % (11.6-14.6); WHITE BLOOD COUNT 10.6 x1000/uL (4.5-11.0)
[2024-08-19 00:29] LABS: GLUCOSE 103 mg/dL (70-105)
[2024-08-19 00:30] LABS: ETHANOL BLOOD < 10 mg/dL (<10); UREA NITROGEN BLOOD 11 mg/dL (9-23)
[2024-08-19 00:35] LABS: TROPONIN I HIGH SENSITIVITY < 4 ng/L (3.0-34)
[2024-08-19 00:41] LABS: PARTIAL THROMBOPLASTIN TIME 28.7 sec (23.4-31.0); PROTHROMBIN TIME 11.2 sec (9.6-11.0)
[2024-08-19] MEDS ORDERED: HYDRALAZINE 20MG/ML VIAL IV SCH (01:00)
[2024-08-19 03:23] VITALS: BP 108/62; PULSE 88; RESP 19; TEMP 36.7; O2SAT 97
== END 2024-08-19 03:28 | disposition short-term general hospital (02) ==
LOC: ER 22:09
DX: R06.02 Shortness of breath (principal); R13.10 Dysphagia, unspecified; E66.3 Overweight; I11.0 Hypertensive heart disease with heart failure; I50.9 Heart failure, unspecified; E78.00 Pure hypercholesterolemia, unspecified; J44.89 Other specified chronic obstructive pulmonary disease; Z88.6 Allergy status to analgesic agent; Z88.5 Allergy status to narcotic agent; Z79.899 Other long term (current) drug therapy; Z79.84 Long term (current) use of oral hypoglycemic drugs; Z20.822 Contact with and (suspected) exposure to COVID-19
CPT/HCPCS: 80048; 80320; 83880; 85025; 85610; 85730; 84484; 36415; 71045; 93005; 99285; 83605; 87040; 87426; Z7610 ×2; J0360; G0480

== ENCOUNTER 2025-02-11 11:01 | Inpatient (IN) | payer MEDICAID, OTHER ==
[~2025-02-11] VITALS: Ht 170.2 cm; Wt 110.0 kg
[~2025-02-11 11:01] MED LIST changes: -FEXO-270 PO; +FEXO-403 PO
[2025-02-11 12:56] LABS: BASOPHILS % 0.5 % (0.0-2.0); EOSINOPHILS % 1.4 % (0.0-5.0); HEMATOCRIT. 42.7 % (36.0-48.0); HEMOGLOBIN. 13.5 g/dL (12.0-16.0); LYMPHOCYTES % 26.6 % (20.0-50.0); MEAN PLATELET VOLUME 8.7 fl (7.4-10.4); MONOCYTES % 7.4 % (2.0-8.0); NEUTROPHILS % 64.1 % (40.0-76.0); PLATELET 308 x1000/uL (130-400); RED BLOOD CELL COUNT 5.06 mill/uL (4.2-5.4); RED CELL DISTRIBUTION WIDTH 18.3 % (11.6-14.6)
[2025-02-11 13:05] LABS: CREATININE 0.6 mg/dL (0.6-1.0); UREA NITROGEN BLOOD < 5 mg/dL (9-23)
[2025-02-11 13:07] LABS: ASPARTATE AMINOTRANSFERASE 31 IU/L (<34); BILIRUBIN DIRECT 0.3 mg/dL (<=3.0); BILIRUBIN TOTAL 0.8 mg/dL (0.1-1.0); PROTEIN TOTAL 8.0 g/dL (6.0-8.3)
[2025-02-11 13:22] LABS: TROPONIN I HIGH SENSITIVITY 48 ng/L (3.0-34)
[2025-02-11 13:36] VITALS: PULSE 93; RESP 22
[2025-02-11] MEDS: ALBUTEROL (0.083%) 2.5MG/3ML NEB HHN SCH (13:36)
[2025-02-11] MEDS: IPRATROPIUM BROMIDE (0.02%) 0.5MG/2.5ML NEB HHN SCH (13:36)
[2025-02-11 13:46] VITALS: PULSE 89; RESP 20
[2025-02-11 13:56] VITALS: PULSE 73; RESP 20
[2025-02-11] MEDS: CEFTRIAXONE 1GM/50ML 50 ML IV ONE (14:26)
[2025-02-11] MEDS: METHYLPREDNISOLONE SOD SUCC 125MG/2ML (ACT-O-VIAL) IV ONE (14:26)
[2025-02-11] MEDS: AZITHROMYCIN 500MG/250ML 250 ML IV ONE (15:02)
[2025-02-11] MEDS ORDERED: PIPERACILLIN/TAZOBACTAM 3.375 G in DEXTROSE 5% WATER 50 ML IV SCH (15:15)
[2025-02-11] MEDS ORDERED: ONDANSETRON HCL 4MG/2ML INJ IV PRN (15:15)
[2025-02-11] MEDS ORDERED: CLONIDINE 0.1MG TABLET PO PRN (15:15)
[2025-02-11] MEDS ORDERED: GUAIFENESIN 200MG/10ML SUGAR FREE UDC PO PRN (15:15)
[2025-02-11] MEDS ORDERED: DOCUSATE SODIUM 100MG CAPSULE PO PRN (15:15)
[2025-02-11] MEDS ORDERED: POTASSIUM CHLORIDE 40 MEQ in DEXT 5% WATER 230 ML IV ONE (15:15)
[2025-02-11] MEDS ORDERED: MAGNESIUM/ALUMINUM HYDROXIDE/SIMETHICONE 30ML UDC PO PRN (15:15)
[2025-02-11] MEDS ORDERED: ACETAMINOPHEN 325MG TABLET PO PRN (15:15)
[2025-02-11] MEDS ORDERED: ENOXAPARIN 40MG/0.4ML SYR SUBCUT SCH (15:15)
[2025-02-11] MEDS ORDERED: DILTIAZEM HCL 120MG TABLET PO PRN (15:45)
[2025-02-11] MEDS ORDERED: PIPERACILLIN/TAZO 3.375G/50ML IV SCH (16:00)
[2025-02-11] MEDS: KCL 20MEQ/100ML X 2 FOR TOTAL KCL 40MEQ/200ML IV SCH (16:43)
[2025-02-11] MEDS ORDERED: VANCOMYCIN 2GM PMX (XELLIA) 400 ML IV SCH (17:00)
[2025-02-11 17:42] LABS: CREATININE 0.6 mg/dL (0.6-1.0); UREA NITROGEN BLOOD < 5 mg/dL (9-23)
[2025-02-11 20:00] VITALS: BP 133/92; PULSE 96; RESP 19; TEMP 36.3; O2SAT 97
[2025-02-11] MEDS: FUROSEMIDE 40MG/4 ML UDC PO SCH (22:19)
[2025-02-11] MEDS: ATORVASTATIN CALCIUM 10MG TABLET PO SCH (22:19)
[2025-02-11] MEDS: ACETAMINOPHEN 325MG TABLET PO PRN (22:20)
[2025-02-11] MEDS: ENOXAPARIN 40MG/0.4ML SYR SUBCUT SCH (22:23)
[2025-02-11 22:30] VITALS: RESP 28
[2025-02-12] VITALS (14 sets, daily range): BP systolic 113–149; BP diastolic 66–91; PULSE 74–111; RESP 10–39; TEMP 35.6–37.1; O2SAT 89–100
[2025-02-12 00:20] LABS: TROPONIN I HIGH SENSITIVITY 51 ng/L (3.0-34)
[2025-02-12] MEDS: KCL 20MEQ/100ML X 2 FOR TOTAL KCL 40MEQ/200ML IV SCH (02:20)
[2025-02-12] MEDS: IPRATROPIUM BROMIDE (0.02%) 0.5MG/2.5ML NEB HHN SCH (02:55)
[2025-02-12] MEDS: VANCOMYCIN 2GM PMX (XELLIA) 400 ML IV SCH (06:48)
[2025-02-12 07:01] LABS: T4 FREE 1.25 ng/dL (0.89-1.76)
[2025-02-12 07:08] LABS: CREATININE 0.6 mg/dL (0.6-1.0)
[2025-02-12 07:09] LABS: LDL CHOLESTEROL 126 mg/dL (5-100); TRIGLYCERIDE 75 mg/dL (0-150); UREA NITROGEN BLOOD < 5 mg/dL (9-23)
[2025-02-12 07:13] LABS: BASOPHILS % 0.3 % (0.0-2.0); EOSINOPHILS % 0.1 % (0.0-5.0); HEMATOCRIT. 40.4 % (36.0-48.0); HEMOGLOBIN. 12.8 g/dL (12.0-16.0); LYMPHOCYTES % 17.2 % (20.0-50.0); MEAN PLATELET VOLUME 9.6 fl (7.4-10.4); MONOCYTES % 0.6 % (2.0-8.0); NEUTROPHILS % 81.8 % (40.0-76.0); PLATELET 274 x1000/uL (130-400); RED BLOOD CELL COUNT 4.72 mill/uL (4.2-5.4); RED CELL DISTRIBUTION WIDTH 18.1 % (11.6-14.6)
[2025-02-12 09:02] LABS: TROPONIN I HIGH SENSITIVITY 28 ng/L (3.0-34)
[2025-02-12] MEDS: PANTOPRAZOLE SODIUM 40 MG/VIAL IV SCH (09:46)
[2025-02-12] MEDS: SPIRONOLACTONE 25MG TABLET PO SCH (09:46)
[2025-02-12] MEDS: EMPAGLIFLOZIN 10MG TABLET PO SCH (09:46)
[2025-02-12] MEDS: IPRATROPIUM BROMIDE (0.02%) 0.5MG/2.5ML NEB HHN PRN (10:34)
[2025-02-12 11:58] LABS: BG BASE EXCESS 0.0 mmol/L (-2.0-3.0); BG CARBOXYHEMOGLOBIN 0.1 % (0.5-1.5); BG DEOXYHEMOGLOBIN 1.3 % (0.0-5.0); BG FRACTION INSPIRED OXYGEN 40; BG HCO3 ACT 25.3 mmol/L (21.0-28.0); BG METHEMOGLOBIN 0.3 % (0.5-1.5); BG OXYGEN SATURATION 98.7 % (94.0-98.0); BG OXYHEMOGLOBIN 98.3 % (94.0-98.0); BG PCO2 43.5 mmHg (32.0-45.0); BG PH 7.382 (7.350-7.450); BG PO2 116.0 mmHg (83.0-108.0); BG SAMPLE SITE RIGHT RADIAL; BG TOTAL HEMOGLOBIN 14.3 g/dL (12.0-16.0); BG VENT MODE MASK - BIPAP; BG VENT RATE 16.0 set
[2025-02-12] MEDS: ACETYLCYSTEINE 200MG/ML 20% VIAL 4ML INH SCH (12:18)
[2025-02-12] MEDS: ALBUTEROL (0.083%) 2.5MG/3ML NEB HHN SCH (12:19)
[2025-02-12] MEDS ORDERED: ACETYLCYSTEINE 200MG/ML 20% VIAL 4ML INH SCH (14:00)
[2025-02-12] MEDS: ENOXAPARIN 30MG/0.3ML SYR SUBCUT SCH (21:18)
[2025-02-13] VITALS (13 sets, daily range): BP systolic 106–138; BP diastolic 60–84; PULSE 87–117; RESP 17–28; TEMP 36.3–36.6; O2SAT 92–100
[2025-02-13] MEDS: VANCOMYCIN 1.5GM PMX (XELLIA) 300 ML IV SCH (09:09)
== END 2025-02-13 19:20 | disposition home or self-care (01) | DRG 137 ==
LOC: ER 11:01 → EDBEDREQ 14:04 → EDBEDREQTM 14:04 → ENRESERV 17:02 → 6WST 17:08 → 5EST 02-12 12:27
PROVIDERS: ADMIT Internal Medicine; ATTEND Internal Medicine
PROC: 5A09357 Assistance with Respiratory Ventilation, Less than 24 Consecutive Hours, Continuous Positive Airway Pressure (ICD-10-PCS; principal; 2025-02-11)
DX: J69.0 Pneumonitis due to inhalation of food and vomit (principal); J96.01 Acute respiratory failure with hypoxia; I21.A1 Myocardial infarction type 2; E87.20 Acidosis, unspecified; K22.0 Achalasia of cardia; I11.0 Hypertensive heart disease with heart failure; J44.1 Chronic obstructive pulmonary disease with (acute) exacerbation; E66.812 Obesity, class 2; F14.10 Cocaine abuse, uncomplicated; I50.32 Chronic diastolic (congestive) heart failure; K21.9 Gastro-esophageal reflux disease without esophagitis; E87.6 Hypokalemia; G47.33 Obstructive sleep apnea (adult) (pediatric); R49.0 Dysphonia; I48.91 Unspecified atrial fibrillation; Z68.38 Body mass index [BMI] 38.0-38.9, adult; J98.11 Atelectasis; K44.9 Diaphragmatic hernia without obstruction or gangrene; Z87.891 Personal history of nicotine dependence; Z99.81 Dependence on supplemental oxygen; Z88.5 Allergy status to narcotic agent; W44.F3XA Food entering into or through a natural orifice, initial encounter
CPT/HCPCS: 36415; 36600; 71045; 76604; 80048; 80061; 80076; 82375; 82805; 83605; 83735; 83880; 84145; 84439; 84443; 84484; 85025; 93005; 94070; 94640; 94660; 96365; 96367; 96375; 99291; A4606; J0456; J0696; J1650; J1940; J2470; J2543; J2919; J3373; J3480; J7608